=== PATIENT | female | born 1940 | race Caucasian/White ===

== ENCOUNTER → 2016-05-21 | Outpatient (CLI) | payer OTHER ==
[~2016-05-21] MED LIST: CALCTAB5 PO; CHOL100010 PO; CMD4 PO; DIGO0.122 PO; LEVAAER2 INH; METO25TA3 PO; WARF2TAB PO
--- NOTE | 2016-05-21 14:43 | MAMMOGRAPHY REPORT ---
BILATERAL DIGITAL SCREENING MAMMOGRAM WITH CAD: 05/21/2016 CLINICAL HISTORY: Routine screening. Patient has no complaints. TECHNIQUE: Current study was also evaluated with a Computer Aided Detection (CAD) system. Bilatera l CC and MLO views were obtained. COMPARISON: Comparison is made to exams dated: 05/21/2015 mammogram, 05/16/2014 mammogram, 05/11/2013 m ammogram, 05/10/2012 mammogram, 05/08/2011 mammogram, and 10/29/2010 mammogram - [facility]. BREAST COMPOSITION: There are scattered areas of fibroglandular density in both breasts. FINDINGS: No suspicious masses, calcifications, or areas of architectural distortion are noted in e ither breast. There has been no significant interval change compared to prior exams. Bilateral laura gn-appearing calcifications are not significantly changed. IMPRESSION: ACR BI-RADS CATEGORY 2: BENIGN There is no mammographic evidence of malignancy. A 1 year screening mammogram is recommended. The p atient will receive written notification of the results. Approximately 10% of breast cancers are not detected with mammography. A negative mammographic repor t should not delay biopsy if a clinically suggestive mass is present. Ayla Cameron M.D. /:05/21/2016 10:02:00 Willow Analyst: Samira INGRAM(R)(M), [facility] letter sent: Normal 1/2 BI-RADS Code: ACR BI-RADS Category 2: Benign
== END | disposition home or self-care (01) ==
LOC: C.MAMM 09:43
PROVIDERS: ATTEND Obstetrics & Gynecology
DX: Z12.31 Encounter for screening mammogram for malignant neoplasm of breast (principal)

== ENCOUNTER → 2016-05-26 | Outpatient (CLI) | payer OTHER ==
[~2016-05-26] MED LIST changes: -CALCTAB5 PO
== END | disposition home or self-care (01) ==
LOC: C.PAPS 11:00
PROVIDERS: ATTEND Obstetrics & Gynecology
DX: Z12.4 Encounter for screening for malignant neoplasm of cervix (principal); Z78.0 Asymptomatic menopausal state

== ENCOUNTER → 2017-02-25 | Day surgery (SDC) | payer OTHER ==
[2017-01-26 14:13] VITALS: Ht 166.4 cm; Wt 75.0 kg
[~2017-02-25] VITALS: Ht 166.4 cm; Wt 75.0 kg
[~2017-02-25] MED LIST changes: +500ML BSS 0.3ML EPI 1:1000PF IRRIG ONE; +ACETAMINOPHEN 325 MG TAB PO PRN; +AMVISC PLUS 0.8ML SYRINGE INT OCU ONE; +ATROPINE SULFATE 0.1 MG/ML 5ML SYR IV PRN; +AcetaZOLAMIDE 250 MG TAB PO SCH; +BETAXOLOL HCL 0.25% OP SUSP PER DROP CHARGE OPR SCH; +BRIMONIDINE TART 0.2% OP SOLN PER DROP CHARGE ONE; +BSS FLUSH ONE; -CHOL100010 PO; +CHOL20007 PO; -CMD4 PO; -DIGO0.122 PO; +ENDOCOAT 0.85ML SYRINGE INT OCU ONE; +EpHEDrine SULFATE INJ 50 MG/ML AMP IV PRN; +EpINEphrine INJ 1MG/ML AMP 1 MG/ML AMP ONE; +LACTATED RINGER'S 1000ML 500 ML IV SCH; +LEVA45AE INH; -LEVAAER2 INH; +LIDOCAINE 4% OP SOLN DROP CHARGE ONE; +LIDOCAINE 4% OP SOLN DROP CHARGE OPR SCH; +LIDOCAINE HCL 1% MPF 2 ML VIAL ONE; +LNX125 PO; +MIDAZOLAM HCL 1 MG/ML 2ML VIAL ONE; +MIX: 4ML BSS 1ML EPI 1:1000 PF INSTIL ONE; +MOXIFLOXACIN OPH SOLN PER DROP CHARGE ONE; +OCUCOAT 1 ML SOLN IO ONE; +POVIDONE-IODINE OP SOLN 30 ML BTL ONE; +PROPARACAINE 0.5% OP SOLN PER DROP CHARGE OPR SCH; +TOBRAMYCIN/DEXAMETHASONE OPH OINT PER APPLN CHARGE ONE; +WARF4TAB PO
--- NOTE | 2017-02-25 07:20 | History & Physical Bridge - SC ---
H&P Re-Evaluation Bridge Note: I have examined the patient, reviewed the History & Physical and in the interval since the performance of the History & Physical I have noted the following changes of clinical significance: No changes noted
[2017-02-25] MEDS: PHENYLEPHRINE HCL 2.5% OP SOLN PER DROP CHARGE OPR SCH ×2 (08:03→08:08)
[2017-02-25] MEDS: TROPICAMIDE 1% OP SOLN PER DROP CHARGE OPR SCH ×2 (08:04→08:09)
[2017-02-25] MEDS: CYCLOPENTOLATE HCL 1% OP SOLN PER DROP CHARGE OPR SCH ×2 (08:05→08:10)
[2017-02-25] MEDS: MOXIFLOXACIN OPH SOLN PER DROP CHARGE OPR SCH ×2 (08:06→08:18)
--- NOTE | 2017-02-25 08:42 | [facility] Operative Report ---
Operative Report Date of Service Feb 25, 2017. Operative Report 1. PREOPERATIVE DIAGNOSIS: Senile nuclear cataract, right eye. 2. POSTOPERATIVE DIAGNOSIS: Senile nuclear cataract, right eye. 3. PROCEDURE: Phacoemulsification of right cataract with posterior chamber lens implant, type Bausch [employer] Lomb, model MX60, power +22.5 diopters. ANESTHESIA: Local standby. SURGEON: Dr. Carpio. COMPLICATIONS: None. OPERATING TIME: 10 minutes. 4. OPERATION AND FINDINGS: DESCRIPTION OF PROCEDURE: The right pupil was dilated. The anesthetic was administered using a topical technique. The right eye was prepped and draped. A speculum was placed. A clear corneal incision was formed. The chamber was filled with Amvisc Plus and Endocoat. Epinephrine solution was used. A paracentesis was placed. A capsulorrhexis was performed. The nucleus was hydrodissected. A dense lens was removed with phacoemulsification. Time was 8.56 seconds. The aspiration unit was used to remove the cortex. The capsule was filled with Amvisc Plus. The lens implant was folded and placed into the capsule. The incision was hydrated. The Amvisc was aspirated. The wound was secure. The chamber was deep. The pupil was round. Brimonidine, TobraDex ointment and Vigamox solution were placed. The speculum was removed. The patient was returned to the Recovery Room in stable condition. I attest to the content of the Intraoperative Record and any orders documented therein. Any exceptions are noted below. The scribe's documentation has been prepared in my presence, under my direction and personally reviewed by me in its entirety. I confirm that the note above accurately reflects all work, treatment, procedures, and medical decision making performed by me. I personally scribed for Gautam Carpio M.D. (ROHITH) on 02/25/17 at 08:42. Electronically submitted by Sherley Colorado (CLAIR).
--- NOTE | 2017-02-25 08:45 | Discharge Instructions-SurgCtr ---
Discharge Instructions Date of Service Feb 25, 2017. Visit Reason for Visit: Cataract Right Eye Discharge Discharge Diagnosis / Problem: lens implant right eye Discharge Goals Goal(s): Improve function Activity Recommendations Activity Limitations: resume your previous activity Lifting Limitations: no more than 10 pounds Exercise/Sports Limitations: gradually increase as tolerated May Resume Sexual Activity: when tolerated Shower/Bathe: tomorrow Driving or Machine Use: resume 1 day after discharge Anesthesia . Post Anesthesia Instructions: If you have had General Anesthesia or IV Sedation: * Do not drive today. * Resume driving when surgeon permits. * Do not make important decisions or sign legal documents today. * Call surgeon for: 1. Temperature elevations greater than 101 degrees F. 2. Uncontrollable pain. 3. Excessive bleeding. 4. Persistent nausea and vomiting. 5. Medication intolerance (nausea, vomiting or rash). * For nausea and vomiting use only clear liquids such as: tea, soda, bouillon until nausea subsides, then gradually increase diet as tolerated. * If you have any concerns or questions, call your surgeon's office. If physician is unavailable and it is an emergency, call 911 or go to the nearest emergency room. . Instructions / Follow-Up Instructions / Follow-Up ACTIVITY RECOMMENDATIONS: * Light activities. * Mild irritation and blurred vision are common for the first few days. * You may walk outside, read, watch television. * Redness around the white part of the eye is common. MEDICATIONS: Resume previous medications unless instructed otherwise by your surgeon. * Take white Diamox (Acetazolamide) tablet at 1 pm today. Start all eye drops at 1 pm today: * Eye drops (today and tomorrow): Prednisone - one drop in operative eye every 3 hours while awake Ofloxacin - one drop in operative eye every 3 hours while awake Ilevro - one drop in operative eye once daily SPECIAL CARE INSTRUCTIONS: * Tape plastic shield over eye to sleep at night. Call your doctor at with any concerns or problems. FOLLOW UP VISIT: Follow-up with Dr Carpio at [place] office as scheduled. Diet Recommendations Home Diet: no limitations Procedures Procedures Performed: Right Cataract Phacoemulsification With Intraocular Lens Implant Pending Studies Studies pending at discharge: no Medical Emergencies . Who to Call and When: Medical Emergencies: If at any time you feel your situation is an emergency, please call 911 immediately. . Non-Emergent Contact Non-Emergency issues call your: Ensemble Member Call Non-Emergent contact if: your pain is not controlled [phone] . . "Provider Documentation" section prepared by Gautam Carpio. .
--- NOTE | 2017-02-25 09:13 | Anesthesia Progress Nt - [facility] ---
Anesthesia Post Op Note Date & Time Feb 25, 2017 at 09:13 Vital Signs Pain Intensity: 0 Vital Signs Past 12 Hours Date Time Temp Pulse Resp B/P (MAP) Pulse Ox O2 Delivery O2 Flow Rate FiO2 02/25/17 08:47 36.5 84 16 124/85 (98) 97 Room Air 02/25/17 07:46 36.7 92 16 136/80 (98) 96 Room Air Notes Mental Status: alert / awake / arousable, participated in evaluation Pt Amnestic to Procedure: Yes Nausea / Vomiting: adequately controlled Pain: adequately controlled Airway Patency, RR, SpO2: stable & adequate BP & HR: stable & adequate Hydration State: stable & adequate Anesthetic Complications: no major complications apparent
[2017-02-25 09:16] VITALS: BP 111/77; PULSE 80; TEMP 36.6; O2SAT 97
== END | disposition home or self-care (01) ==
LOC: X.SURG 07:26
PROVIDERS: ATTEND Specialist
DX: H25.11 Age-related nuclear cataract, right eye (principal); Z79.01 Long term (current) use of anticoagulants; Z79.899 Other long term (current) drug therapy

== ENCOUNTER → 2017-03-18 | Day surgery (SDC) | payer OTHER ==
[2017-03-16 14:55] VITALS: Ht 166.4 cm; Wt 75.0 kg
[~2017-03-18] VITALS: Ht 166.4 cm; Wt 75.0 kg
[~2017-03-18] MED LIST changes: +BETAXOLOL HCL 0.25% OP SUSP PER DROP CHARGE OPL SCH; -BETAXOLOL HCL 0.25% OP SUSP PER DROP CHARGE OPR SCH; +LIDOCAINE 4% OP SOLN DROP CHARGE OPL SCH; -LIDOCAINE 4% OP SOLN DROP CHARGE OPR SCH; +PROPARACAINE 0.5% OP SOLN PER DROP CHARGE OPL SCH; -PROPARACAINE 0.5% OP SOLN PER DROP CHARGE OPR SCH
[2017-03-18] MEDS: PHENYLEPHRINE HCL 2.5% OP SOLN PER DROP CHARGE OPL SCH ×2 (08:06→08:12)
[2017-03-18] MEDS: TROPICAMIDE 1% OP SOLN PER DROP CHARGE OPL SCH ×2 (08:07→08:13)
[2017-03-18] MEDS: CYCLOPENTOLATE HCL 1% OP SOLN PER DROP CHARGE OPL SCH ×2 (08:10→08:15)
[2017-03-18] MEDS: MOXIFLOXACIN OPH SOLN PER DROP CHARGE OPL SCH ×2 (08:11→08:21)
--- NOTE | 2017-03-18 08:55 | [facility] Operative Report ---
Operative Report Date of Service Mar 18, 2017. Operative Report 1. PREOPERATIVE DIAGNOSIS: Senile nuclear cataract, left eye. 2. POSTOPERATIVE DIAGNOSIS: Senile nuclear cataract, left eye. 3. PROCEDURE: Phacoemulsification of left cataract with posterior chamber lens implant, type Bausch [employer] Lomb, model MX60, power +23.5 diopters. ANESTHESIA: Local standby. SURGEON: Dr. Carpio. COMPLICATIONS: None. OPERATING TIME: 10 minutes. 4. OPERATION AND FINDINGS: DESCRIPTION OF PROCEDURE: The left pupil was dilated. The anesthetic was administered using a topical technique. The left eye was prepped and draped. A speculum was placed. A clear corneal incision was formed. The chamber was filled with Amvisc Plus and Endocoat. Epinephrine solution was used. A paracentesis was placed. A capsulorrhexis was performed. The nucleus was hydrodissected. A dense lens was removed with phacoemulsification. Time was 8.15 seconds. The aspiration unit was used to remove the cortex. The capsule was filled with Amvisc Plus. The lens implant was folded and placed into the capsule. The incision was hydrated. The Amvisc was aspirated. The wound was secure. The chamber was deep. The pupil was round. Brimonidine, TobraDex ointment and Vigamox solution were placed. The speculum was removed. The patient was returned to the Recovery Room in stable condition. I attest to the content of the Intraoperative Record and any orders documented therein. Any exceptions are noted below. The scribe's documentation has been prepared in my presence, under my direction and personally reviewed by me in its entirety. I confirm that the note above accurately reflects all work, treatment, procedures, and medical decision making performed by me. I personally scribed for Gautam Carpio M.D. (ROHITH) on 03/18/17 at 08:55. Electronically submitted by Sherley [place] ([facility]
--- NOTE | 2017-03-18 08:58 | Discharge Instructions-SurgCtr ---
Discharge Instructions Date of Service Mar 18, 2017. Visit Reason for Visit: Cataract Left Eye Discharge Discharge Diagnosis / Problem: lens implant left eye Discharge Goals Goal(s): Improve function Activity Recommendations Activity Limitations: resume your previous activity Lifting Limitations: no more than 10 pounds Exercise/Sports Limitations: gradually increase as tolerated May Resume Sexual Activity: when tolerated Shower/Bathe: tomorrow Driving or Machine Use: resume 1 day after discharge Anesthesia . Post Anesthesia Instructions: If you have had General Anesthesia or IV Sedation: * Do not drive today. * Resume driving when surgeon permits. * Do not make important decisions or sign legal documents today. * Call surgeon for: 1. Temperature elevations greater than 101 degrees F. 2. Uncontrollable pain. 3. Excessive bleeding. 4. Persistent nausea and vomiting. 5. Medication intolerance (nausea, vomiting or rash). * For nausea and vomiting use only clear liquids such as: tea, soda, bouillon until nausea subsides, then gradually increase diet as tolerated. * If you have any concerns or questions, call your surgeon's office. If physician is unavailable and it is an emergency, call 911 or go to the nearest emergency room. . Instructions / Follow-Up Instructions / Follow-Up ACTIVITY RECOMMENDATIONS: * Light activities. * Mild irritation and blurred vision are common for the first few days. * You may walk outside, read, watch television. * Redness around the white part of the eye is common. MEDICATIONS: Resume previous medications unless instructed otherwise by your surgeon. * Take white Diamox (Acetazolamide) tablet at 1 pm today. Start all eye drops at 1 pm today: * Eye drops (today and tomorrow): Prednisone - one drop in operative eye every 3 hours while awake Ofloxacin - one drop in operative eye every 3 hours while awake SPECIAL CARE INSTRUCTIONS: * Tape plastic shield over eye to sleep at night. Call your doctor at with any concerns or problems. FOLLOW UP VISIT: Follow-up with Dr Carpio at [facility] as scheduled. Diet Recommendations Home Diet: no limitations Procedures Procedures Performed: Left Cataract Phacoemulsification With Intraocular Lens Implant Pending Studies Studies pending at discharge: no Medical Emergencies . Who to Call and When: Medical Emergencies: If at any time you feel your situation is an emergency, please call 911 immediately. . Non-Emergent Contact Non-Emergency issues call your: Leadership Program Internship Call Non-Emergent contact if: your pain is not controlled [phone] . . "Provider Documentation" section prepared by Gautam Carpio. .
[2017-03-18 09:02] VITALS: TEMP 36.7
--- NOTE | 2017-03-18 09:06 | Anesthesia Progress Nt - [facility] ---
Anesthesia Post Op Note Date & Time Mar 18, 2017 at 09:06 Vital Signs Pain Intensity: 0 Vital Signs Past 12 Hours Date Time Temp Pulse Resp B/P (MAP) Pulse Ox O2 Delivery O2 Flow Rate FiO2 03/18/17 07:54 36.3 94 16 131/76 (94) 98 Room Air Notes Mental Status: alert / awake / arousable, participated in evaluation Pt Amnestic to Procedure: Yes Nausea / Vomiting: adequately controlled Pain: adequately controlled Airway Patency, RR, SpO2: stable & adequate BP & HR: stable & adequate Hydration State: stable & adequate Anesthetic Complications: no major complications apparent
[2017-03-18 09:27] VITALS: BP 106/68; PULSE 84; O2SAT 100
== END | disposition home or self-care (01) ==
LOC: X.SURG 07:26
PROVIDERS: ATTEND Specialist
DX: H25.12 Age-related nuclear cataract, left eye (principal); I51.9 Heart disease, unspecified; Z79.899 Other long term (current) drug therapy; Z79.01 Long term (current) use of anticoagulants

== ENCOUNTER → 2017-06-25 | Outpatient (CLI) | payer OTHER ==
[~2017-06-25] MED LIST changes: -500ML BSS 0.3ML EPI 1:1000PF IRRIG ONE; -ACETAMINOPHEN 325 MG TAB PO PRN; -AMVISC PLUS 0.8ML SYRINGE INT OCU ONE; -ATROPINE SULFATE 0.1 MG/ML 5ML SYR IV PRN; -AcetaZOLAMIDE 250 MG TAB PO SCH; -BETAXOLOL HCL 0.25% OP SUSP PER DROP CHARGE OPL SCH; -BRIMONIDINE TART 0.2% OP SOLN PER DROP CHARGE ONE; -BSS FLUSH ONE; -ENDOCOAT 0.85ML SYRINGE INT OCU ONE; -EpHEDrine SULFATE INJ 50 MG/ML AMP IV PRN; -EpINEphrine INJ 1MG/ML AMP 1 MG/ML AMP ONE; -LACTATED RINGER'S 1000ML 500 ML IV SCH; -LIDOCAINE 4% OP SOLN DROP CHARGE ONE; -LIDOCAINE 4% OP SOLN DROP CHARGE OPL SCH; -LIDOCAINE HCL 1% MPF 2 ML VIAL ONE; -LNX125 PO; -MIDAZOLAM HCL 1 MG/ML 2ML VIAL ONE; -MIX: 4ML BSS 1ML EPI 1:1000 PF INSTIL ONE; -MOXIFLOXACIN OPH SOLN PER DROP CHARGE ONE; -OCUCOAT 1 ML SOLN IO ONE; -POVIDONE-IODINE OP SOLN 30 ML BTL ONE; -PROPARACAINE 0.5% OP SOLN PER DROP CHARGE OPL SCH; -TOBRAMYCIN/DEXAMETHASONE OPH OINT PER APPLN CHARGE ONE
--- NOTE | 2017-06-26 07:48 | MAMMOGRAPHY REPORT ---
BILATERAL DIGITAL SCREENING MAMMOGRAM TOMOSYNTHESIS WITH CAD: 06/25/2017 CLINICAL HISTORY: Routine screening. TECHNIQUE: Breast tomosynthesis in addition to standard 2D mammography was performed. Current study was also evaluated with a Computer Aided Detection (CAD) system. COMPARISON: Comparison is made to exams dated: 05/21/2016 mammogram, 05/21/2015 mammogram, 05/16/2014 renae mogram, 05/11/2013 mammogram, 05/10/2012 mammogram, and 05/08/2011 mammogram - [facility]. BREAST COMPOSITION: There are scattered areas of fibroglandular density in both breasts. FINDINGS: No suspicious masses, calcifications, or areas of architectural distortion are noted in ei ther breast. There has been no significant interval change compared to prior exams. Bilateral asymme tries and bilateral benign-appearing calcifications are not significantly changed. IMPRESSION: ACR BI-RADS CATEGORY 2: BENIGN There is no mammographic evidence of malignancy. A 1 year screening mammogram is recommended. The pa tient will receive written notification of the results. Approximately 10% of breast cancers are not detected with mammography. A negative mammographic report should not delay biopsy if a clinically suggestive mass is present. Ayla Cameron M.D. /:06/25/2017 14:38:29 Event Planning Intern: Rajesh INGRAM([place])(M), [facility] letter sent: Normal 1/2 BI-RADS Code: ACR BI-RADS Category 2: Benign
== END | disposition home or self-care (01) ==
LOC: C.MAMM 08:36
PROVIDERS: ATTEND Obstetrics & Gynecology
DX: Z12.31 Encounter for screening mammogram for malignant neoplasm of breast (principal)

== ENCOUNTER 2020-06-07 05:49 | Inpatient (IN) ==
--- NOTE | 2020-06-07 06:35 | Emergency Department Note ---
Impression & Plan Closed fracture of left hip, Fall, Atrial fibrillation ED Provider Note NAME: DELMI CHAVEZ AGE: 79 SEX: F : 1940 ARRIVES VIA: Ambulance INFORMANT: Patient, ED PROVIDER(S): Grabiel Betancourt MD Chief Complaint: Fall, hip pain HPI: Patient does present with a fall and associated hip pain. The patient stat es that last evening she was trying to walk past her in the hallway lost her balance and fell striking her left side. The patient denies any head trauma head or neck pain. The patient does take Eliquis for known history of A. fib. Patient denies any fevers chills chest pain shortness of breath nausea or vomiting. The patient did take Tylenol and tried to ice the left hip but without improvement in her symptoms. Ambulation and palpation to make her pain worse and she describes it as achy at baseline and sharp with palpation or additional movement. The patient states that she did has had a prior ankle procedure completed by Dr. Tate with [facility] orthopedics. Patient benny es any LOC. ROS: See HPI for pertinent positives and negatives. A total of 10 systems were reviewed and otherwise negative. Past medical history: See below Surgical history: See below Social history: See below Physical Exam: GENERAL: Wearing a mask. NAD, non-toxic. EYE EXAM: Normal conjunctiva. PERRL, no anisocoria and EOM's grossly intact w/o pain. Head: Normocephalic atraumatic with no pain. NECK: Supple, no nuchal rigidity, no adenopathy, non-tender. No signs of meningismus. No midline C-spine TTP LUNGS: Clear to auscultation. Normal chest wall mechanics. HEART: Irregularly irregular and tachycardic, no MRG. ABDOMEN: Abdomen soft, non-tender, normo-active bowel sounds, no masses, no rebound or guarding. BACK: No CVA TTP. SKIN: No rashes and no bruising. UPPER EXTREMITIES: Upper extremities are grossly normal. TTP. LOWER EXTREMITIES: Grossly normal, no edema. Pain over the left groin and left lateral hip area, decreased range of motion secondary to pain, compartments are soft, neurovascular intact distally. NEURO EXAM: A&O x3, cranial nerves II-XII grossly intact, normal speech, moves all 4 extremities with exception of decreased range of motion left lower extremity secondary to pain. Differential diagnoses: Fracture, subluxation, dislocation, contusion, ligamentous injury, neurovascular, compartment syndrome, rhabdomyolysis, as well as other pathologies. Course: Patient was seen and evaluated the bedside. Full history physical exam was performed. EKG: Indication: Screening No obvious P waves, likely A. fib, ventricular rate of 134, normal QRS, normal axis, PVC noted. Imaging Studies: See below Cardiac monitoring: An order was placed for continuous cardiac monitoring. The monitor shows a rate of 115 with irregularly irregular rhythm. MDM: Patient did present with concern for fall and hip pain. The patient has a white count of 11 but denies infectious symptoms. H&H is normal. The patient's kidney function mild prerenal azotemia with mild elevation in calcium. The patient was ordered a small amount of IV fluids. Patient states that she last took her Eliquis yesterday morning. Patient does have a left subcapital femur fracture. Knee x-ray unremarkable. I did speak with the on-call orthopedist Dr. Kirk who will evaluate the patient. I also did speak with the on-call hospitalist Dr. Matt and the patient was admitted to the medicine service. Patient was ordered her home dose of metoprolol 100 mg. The patient is missed her last 2 doses. Past Med/Surg History Medical History Arthritis HIPS Asthma MILD Exertional shortness of breath Gastroesophageal reflux disease HX OF History of basal cell carcinoma of skin Moderate to severe mitral regurgitation Osteopenia Prediabetes Severe tricuspid regurgitation by prior echocardiogram Varicose veins with pain Surgical History History of ankle surgery MANIPULATION, RIGHT ANKLE History of appendectomy History of cardioversion History of cataract surgery BILAT History of colonoscopy Family History Father Cardiac disorder Stroke Mother Dementia Diabetes Denies family history of Ovarian cancer Prostate cancer Myocardial infarction Breast cancer Colorectal cancer Social History Smoking Status: Never smoker Second Hand Exposure: No; Hx Alcohol Use: Yes Hx Substance Use: No Preferred Language: Chinese Communication Ability: Effective Visual Impairment: No Limitations Hearing Ability: Normal [employer] Worker Required: No Beliefs That Will Affect Care: None marital status: Current Living Situation: Spouse current occupational status: retired How many Children do You have: 3 Feels Safe at Home: Yes Childhood Exposure to Second-Hand Smoke: No caffeine: Yes during the past year weight has: remained stable Dental Care, Regularly: Yes Physical Activity Frequency: 1-2 Times per Week Seatbelt Use: always Sunscreen Use: Yes Assistive Devices: Glasses Allergies Allergies Allergy/AdvReac Type Severity Reaction Status Date / Time adhesive Allergy Mild Rash Verified 06/07/20 07:27 Home Meds Home Medications Medication Instructions Recorded Confirmed cholecalciferol (vitamin D3) 50 2,000 units PO QDD 11/10/17 06/07/20 mcg (2,000 unit) capsule calcium carbonate-vitamin D3 1 tab PO TID 06/07/20 06/07/20 [Calcium 600 + D(3)] metoprolol tartrate 50 mg PO DAILY PRN 06/07/20 06/07/20 Previous Rx's Medication Instructions Recorded albuterol sulfate 90 mcg/actuation See Rx Instructions INH .COMPLEX 08/17/18 aerosol inhaler PRN #6.7 gm apixaban 5 mg tablet 5 mg PO BID #180 tab 12/14/19 metoprolol succinate 100 mg 100 mg PO TID #270 tab 02/28/20 tablet,extended release 24 hr triamterene 37.5 1 tab PO .COMPLEX #30 tab 05/16/20 mg-hydrochlorothiazide 25 mg tablet Results & Data (ED) Vital Signs Vital Signs - 24 hr 06/07/20 06:00 06/07/20 06:36 Temperature 37.2 C Temperature Source Oral Pulse Rate 119 H Respiratory Rate 16 Respiratory Effort / Characteristics Non-Labored Spontaneous Respiratory Depth Normal Respiratory Pattern Regular Blood Pressure 164/110 H Blood Pressure Mean 128 Blood Pressure Position Sitting Pulse Oximetry 92 88 L Oxygen Delivery Method Room Air Room Air Sepsis Recent Fever Within 48 Hours No Sepsis New/Unexplained Change in Mental Status No Sepsis Action Taken by Nursing No Action Required Oxygen Flow Rate - Titration 2 Pulse Oximetry Post Tiitration 93 Home Medications Current Medication List: was personally reviewed by me Laboratory Data Attestation: I reviewed the patient's lab results. Result diagrams: 06/07/20 06:09 04/22/21 06:09 Lab Results 06/07/20 06/07/20 06/07/20 Range/Units 06:09 06:09 06:09 WBC 11.64 H (4.8-10.8) K/uL RBC 4.80 (4.2-5.4) M/uL Hgb 14.3 (12.0-16.0) g/dL Hct 42.6 (37-47) % MCV 88.8 (80-100) fL MCH 29.8 (25-34) pg MCHC 33.6 (32-36) g/dL RDW Std Deviation 45.6 (36.4-46.3) fL RDW Coeff of Harry 13.9 (11.5-14.5) % Plt Count 225 (130-400) K/uL MPV 11.8 H (7.4-10.4) fL Immature Gran % (Auto) 0.2 % Neut % (Auto) 93.0 % Lymph % (Auto) 3.9 % [place] % (Auto) 2.6 % Eos % (Auto) 0.1 % Baso % (Auto) 0.2 % Neut # (Auto) 10.84 H (1.4-6.5) K/uL Lymph # (Auto) 0.45 L (1.2-3.4) K/uL [place] # (Auto) 0.30 (0.11-0.59) K/uL Eos # (Auto) 0.01 (0-0.5) K/uL Baso # (Auto) 0.02 (0-0.2) K/uL Immature Gran # (Auto) 0.02 (0.00-0.02) K/uL PT 11.1 (9.0-12.0) Seconds INR 1.1 (0.9-1.1) APTT 26.1 (21.0-31.0) Seconds PTT Ratio 1.0 Sodium 135 L (136-145) mmol/L Potassium 4.4 (3.5-5.1) mmol/L Chloride 99 (98-107) mmol/L Carbon Dioxide 25 (21-32) mmol/L Anion Gap 11.0 (3-11) BUN 22 H (7-18) mg/dl Creatinine 1.11 (0.6-1.2) mg/dl Est Cr Clr Drug Dosing Not Reportable Est GFR ( Amer) 53.9 Est GFR (Non-Af Amer) 46.5 BUN/Creatinine Ratio 19.9 (10-20) Glucose 155 H (70-99) mg/dl Calcium 10.2 H (8.5-10.1) mg/dl Total Bilirubin 1.5 H (0.2-1) mg/dl AST 26 (15-37) U/L ALT 30 (12-78) U/L Alkaline Phosphatase 92 (45-117) U/L Total Protein 8.4 H (6.4-8.2) gm/dl Albumin 3.8 (3.4-5.0) gm/dl Globulin 4.6 H (2.5-4.0) gm/dl Albumin/Globulin Ratio 0.8 L (0.9-2) COVID-19 Eval Order 06/07/20 Range/Units 07:05 WBC (4.8-10.8) K/uL RBC (4.2-5.4) M/uL Hgb (12.0-16.0) g/dL Hct (37-47) % MCV (80-100) fL MCH (25-34) pg MCHC (32-36) g/dL RDW Std Deviation (36.4-46.3) fL RDW Coeff of Harry (11.5-14.5) % Plt Count (130-400) K/uL MPV (7.4-10.4) fL Immature Gran % (Auto) % Neut % (Auto) % Lymph % (Auto) % [place] % (Auto) % Eos % (Auto) % Baso % (Auto) % Neut # (Auto) (1.4-6.5) K/uL Lymph # (Auto) (1.2-3.4) K/uL [place] # (Auto) (0.11-0.59) K/uL Eos # (Auto) (0-0.5) K/uL Baso # (Auto) (0-0.2) K/uL Immature Gran # (Auto) (0.00-0.02) K/uL PT (9.0-12.0) Seconds INR (0.9-1.1) APTT (21.0-31.0) Seconds PTT Ratio Sodium (136-145) mmol/L Potassium (3.5-5.1) mmol/L Chloride (98-107) mmol/L Carbon Dioxide (21-32) mmol/L Anion Gap (3-11) BUN (7-18) mg/dl Creatinine (0.6-1.2) mg/dl Est Cr Clr Drug Dosing Est GFR ( Amer) Est GFR (Non-Af Amer) BUN/Creatinine Ratio (10-20) Glucose (70-99) mg/dl Calcium (8.5-10.1) mg/dl Total Bilirubin (0.2-1) mg/dl AST (15-37) U/L ALT (12-78) U/L Alkaline Phosphatase (45-117) U/L Total Protein (6.4-8.2) gm/dl Albumin (3.4-5.0) gm/dl Globulin (2.5-4.0) gm/dl Albumin/Globulin Ratio (0.9-2) COVID-19 Eval Order CovFluRsv at [facility] Administered Medications Discontinued Medications Morphine Sulfate (Morphine Sulfate 4 Mg/Ml 1 Ml Carp\Vial) 4 mg IV NOW STA Stop: 06/07/20 06:53 Last Admin: 06/07/20 06:58 Dose: 4 mg Documented by: [id number] Ondansetron HCl (Ondansetron Inj 2 Mg/Ml 2 Ml Vial) 4 mg IV NOW STA Stop: 06/07/20 06:53 Last Admin: 06/07/20 06:58 Dose: 4 mg Documented by: [id number] Imaging Data Radiologist's Impression: Knee X-Ray 06/07/20 06:01 XR knee LT 1 or 2V routine CLINICAL HISTORY: Trauma. COMPARISON: None FINDINGS: Alignment of the left knee is anatomic. No joint effusion. No acute fracture. No osseous lesion is identified. There is moderate medial compartment joint space narrowing. IMPRESSION: 1. No acute fracture or joint effusion of the left knee. 2. Moderate medial compartment osteoarthritis. ACT 112: Negative or not required by law. Electronically signed by: Venu Way M.D. 06/07/2020 6:56 AM Chest X-Ray 06/07/20 06:03 XR chest 1V portable CLINICAL HISTORY: fall. hip pain COMPARISON STUDY: Chest radiograph January 03, 2019. FINDINGS: Lung volumes are normal. There is no pneumothorax or definite pleural effusion. Apparent hazy left basilar opacity is likely artifactual. There is pulmonary vascular congestion. Cardiomegaly is noted. IMPRESSION: Cardiomegaly with pulmonary vascular congestion. ACT 112: Negative or not required by law. Electronically signed by: Venu Way M.D. 06/07/2020 7:02 AM Hip X-Ray 06/07/20 06:03 XR hip LT min 2V CLINICAL HISTORY: fall. pain COMPARISON: CT of the abdomen and pelvis December 05, 2018. FINDINGS: Note is made of an acute displaced subcapital left femoral fracture. Fracture is displaced at least 1.4 cm. No additional acute fractures are noted. Moderate to severe left hip osteoarthritis is present. IMPRESSION: 1. Acute displaced subcapital left femoral neck fracture. 2. Moderate to severe left hip osteoarthritis. ACT 112: Negative or not required by law. Electronically signed by: Venu Way M.D. 06/07/2020 7:00 AM Discharge Plan Visit Data Chief Complaint: Fall Stated Complaint: FALL ED Provider: Grabiel Betancourt Discharge Problem: Closed fracture of left hip, Fall, Atrial fibrillation Forms Stand Alone Forms: [facility] Prescriptions Prescriptions: No Action cholecalciferol (vitamin D3) 2,000 unit capsule 2,000 units PO QDD RF: 0 albuterol sulfate [Proventil HFA] 90 mcg/actuation HFA aerosol inhaler See Rx Instructions INH .COMPLEX PRN (Reason: shortness of breath or wheezing) Qty: 6.7 RF: 1 apixaban 5 mg tablet 5 mg PO BID Qty: 180 RF: 3 metoprolol succinate 100 mg tablet extended release 24 hr 100 mg PO TID Qty: 270 RF: 3 triamterene-hydrochlorothiazid [Maxzide-25mg] 37.5-25 mg tablet 1 tab PO .COMPLEX Qty: 30 RF: 3 metoprolol tartrate 50 mg Tablet 50 mg PO DAILY PRN (Reason: A Fib) RF: 0 calcium carbonate-vitamin D3 [Calcium 600 + D(3)] 600 mg(1,500mg) -400 unit Tablet 1 tab PO TID RF: 0 Discharge Problem: Closed fracture of left hip Qualifiers: Encounter type: initial encounter Qualified Code(s): S72.002A - Fracture of unspecified part of neck of left femur, initial encounter for closed fracture Fall Qualifiers: Encounter type: initial encounter Qualified Code(s): W19.XXXA - Unspecified fall, initial encounter Atrial fibrillation Qualifiers: Atrial fibrillation type: unspecified Qualified Code(s): I48.91 - Unspecified atrial fibrillation
[2020-06-07 06:36] LABS: Basophils # (auto) 0.02 K/uL (0-0.2); Basophils % (auto) 0.2 %; Eosinophils # (auto) 0.01 K/uL (0-0.5); Eosinophils % (auto) 0.1 %; Hematocrit (blood only) 42.6 % (37-47); Hemoglobin 14.3 g/dL (12.0-16.0); Immature Granulocytes # (auto) 0.02 K/uL (0.00-0.02); Immature Granulocytes % (auto) 0.2 %; Lymphocytes # (auto) 0.45 K/uL (1.2-3.4); Lymphocytes % (auto) 3.9 %; Mean Corpuscular Hemoglobin 29.8 pg (25-34); Mean Corpuscular Hgb Conc 33.6 g/dL (32-36); Mean Corpuscular Volume 88.8 fL (80-100); Mean Platelet Volume 11.8 fL (7.4-10.4); Monocytes % (auto) 2.6 %; Neutrophils # (auto) 10.84 K/uL (1.4-6.5); Platelet Count 225 K/uL (130-400); RDW Coefficient of Variation 13.9 % (11.5-14.5); RDW Standard Deviation 45.6 fL (36.4-46.3); White Blood Count 11.64 K/uL (4.8-10.8)
[2020-06-07 06:48] LABS: INR 1.1 (0.9-1.1); Partial Thromboplastin Time 26.1 Seconds (21.0-31.0); Prothrombin Time 11.1 Seconds (9.0-12.0)
[2020-06-07] MEDS ORDERED: ONDANSETRON INJ 2 MG/ML 2 ML VIAL IV STA (06:52)
[2020-06-07] MEDS ORDERED: MoRPHine SULFATE 4 MG/ML 1 ML CARP\\VIAL IV STA (06:52)
--- NOTE | 2020-06-07 06:58 | XRay Report ---
XR knee LT 1 or 2V routine CLINICAL HISTORY: Trauma. COMPARISON: None FINDINGS: Alignment of the left knee is anatomic. No joint effusion. No acute fracture. No osseous l esion is identified. There is moderate medial compartment joint space narrowing. IMPRESSION: 1. No acute fracture or joint effusion of the left knee. 2. Moderate medial compartment osteoarthritis. ACT 112: Negative or not required by law. Electronically signed by: Venu Way M.D. 06/07/2020 6:56 AM
--- NOTE | 2020-06-07 07:01 | XRay Report ---
XR hip LT min 2V CLINICAL HISTORY: fall. pain COMPARISON: CT of the abdomen and pelvis December 05, 2018. FINDINGS: Note is made of an acute displaced subcapital left femoral fracture. Fracture is displaced at least 1.4 cm. No additional acute fractures are noted. Moderate to severe left hip osteoarthritis is present. IMPRESSION: 1. Acute displaced subcapital left femoral neck fracture. 2. Moderate to severe left hip osteoarthritis. ACT 112: Negative or not required by law. Electronically signed by: Venu Way M.D. 06/07/2020 7:00 AM
--- NOTE | 2020-06-07 07:04 | XRay Report ---
XR chest 1V portable CLINICAL HISTORY: fall. hip pain COMPARISON STUDY: Chest radiograph January 03, 2019. FINDINGS: Lung volumes are normal. There is no pneumothorax or definite pleural effusion. Apparent amin zy left basilar opacity is likely artifactual. There is pulmonary vascular congestion. Cardiomegaly i s noted. IMPRESSION: Cardiomegaly with pulmonary vascular congestion. ACT 112: Negative or not required by law. Electronically signed by: Venu Way M.D. 06/07/2020 7:02 AM
[2020-06-07 07:05] LABS: Alanine Aminotransferase 30 U/L (12-78); Albumin Level 3.8 gm/dl (3.4-5.0); BUN Creatinine Ratio 19.9 (10-20); Blood Urea Nitrogen 22 mg/dl (7-18); Calcium 10.2 mg/dl (8.5-10.1); Carbon Dioxide 25 mmol/L (21-32); Chloride 99 mmol/L (98-107); Est GFR (African American) 53.9; Est GFR (Non-African American) 46.5; Glucose 155 mg/dl (70-99)
[2020-06-07 07:07] LABS: Albumin Globulin Ratio 0.8 (0.9-2); Alkaline Phosphatase 92 U/L (45-117); Bilirubin,Total 1.5 mg/dl (0.2-1); Globulin 4.6 gm/dl (2.5-4.0); Total Protein 8.4 gm/dl (6.4-8.2)
[2020-06-07 07:13] LABS: Potassium 4.4 mmol/L (3.5-5.1); Sodium 135 mmol/L (136-145)
[2020-06-07 07:15] LABS: Aspartate Aminotransferase 26 U/L (15-37)
--- NOTE | 2020-06-07 07:27 | History & Physical Report ---
Date of Service June 07, 2020 Assessment & Plan (1) Subcapital fracture of left hip: Patient is medically appropriate for surgery. She does have cardiovascular risk with pulmonary hypertension and mitral regurgitation. She last took her oral anticoagulants on 06/07/2019 1 in the AM. Would recommend holding for 24 hours subsequent best lowest risk for surgical bleeding would be if surgery was performed on 06/08/2020 (2) Permanent atrial fibrillation: Patient typically takes metoprolol 100 mg succinate 3 times daily with the supervision of Dr. Olivares. 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 (3) Acquired autoimmune hypothyroidism: Patient is currently not any thyroid supplementation we will check a TSH (4) Moderate pulmonary arterial systolic hypertension: History of Present Illness Primary Care Provider: Ori Chavarria, Pt reportedly fell last pm trying to get around her , she tired to rest but had increasing pain in the hip, states she did not take her eliquis last pm, presents to ER with left subcapital hip fracture Allergies Allergy/AdvReac Type Severity Reaction Status Date / Time adhesive Allergy Mild Rash Verified 06/07/20 07:27 Home Medications Medication Instructions Recorded Confirmed Type cholecalciferol (vitamin D3) 50 2,000 units PO QDD 11/10/17 06/07/20 History mcg (2,000 unit) capsule albuterol sulfate 90 mcg/actuation See Rx Instructions INH .COMPLEX 08/17/18 06/07/20 Rx aerosol inhaler PRN #6.7 gm apixaban 5 mg tablet 5 mg PO BID #180 tab 12/14/19 06/07/20 Rx metoprolol succinate 100 mg 100 mg PO TID #270 tab 02/28/20 06/07/20 Rx tablet,extended release 24 hr triamterene 37.5 1 tab PO .COMPLEX #30 tab 05/16/20 06/07/20 Rx mg-hydrochlorothiazide 25 mg tablet calcium carbonate-vitamin D3 1 tab PO TID 06/07/20 06/07/20 History [Calcium 600 + D(3)] metoprolol tartrate 50 mg PO DAILY PRN 06/07/20 06/07/20 History Past Med/Surg History Medical History (Updated 06/07/20 @ 15:53 by Davian Marcelino MD) Arthritis HIPS Asthma MILD Exertional shortness of breath Gastroesophageal reflux disease HX OF History of basal cell carcinoma of skin Moderate to severe mitral regurgitation Osteopenia Permanent atrial fibrillation DX 25 YRS AGO, HX CARDIOVERSION BUT AFIB RETURNED. Prediabetes Severe tricuspid regurgitation by prior echocardiogram Tachycardia Varicose veins with pain Surgical History History of ankle surgery MANIPULATION, RIGHT ANKLE History of appendectomy History of cardioversion History of cataract surgery BILAT History of colonoscopy Family History Father Cardiac disorder Stroke Mother Dementia Diabetes Denies family history of Ovarian cancer Prostate cancer Myocardial infarction Breast cancer Colorectal cancer Social History Smoking Status: Never smoker Second Hand Exposure: No; Hx Alcohol Use: Yes Alcohol type: wine Hx Substance Use: No Preferred Language: Hebrew Communication Ability: Effective Visual Impairment: No Limitations Hearing Ability: Normal Maintenance Representative Required: No Beliefs That Will Affect Care: None marital status: Current Living Situation: Spouse current occupational status: retired How many Children do You have: 3 Other Information That Helps Us Care for You: No Feels Safe at Home: Yes Safety Concerns: Feels Safe At This Time Childhood Exposure to Second-Hand Smoke: No caffeine: Yes during the past year weight has: remained stable Dental Care, Regularly: Yes Physical Activity Frequency: 1-2 Times per Week Seatbelt Use: always Sunscreen Use: Yes Assistive Devices: Glasses Review of Systems Review of Systems: Mild distress and fatigue no headache, blurry or double vision no speech or swallowing issues no chest pain, pressure or palpitations no shortness of breath, cough or wheezes no abdominal pain, nausea or vomiting, diarrhea or constipation no dysuria, hematuria or frequency focal left hip pain and some swelling to thigh no back pain, CVA tenderness or radicular pain no bruising, bleeding or rashes no focal signs of weakness or numbness or altered sensation no complaints of anxiety or depression.. Physical Exam Physical Exam: The patient appeared well nourished and normally developed. Vital signs as documented. Head exam is normocephalic atraumatic no scleral icterus Neck is without JVD, thyromegaly, or carotid bruits. Lungs are clear to auscultation, no focal loss of breath sounds Cardiac exam, tachycardic and irregular [place] is heard Abdominal exam reveals normal bowel sounds, soft non tender, no masses Extremities left sided hip pain and some swelling Neurologic exam is alert and oriented, no focal loss of strength or sensation Skin is without bruises or rashes Psychologically is without concerns for anxiety or depression Results & Data Results & Data ([facility]) Vital Signs (Past 12 Hours) Vital Signs Temp Pulse Resp BP Pulse Ox 06/07/20 06:36 88 L 06/07/20 06:00 99.0 F 119 H 16 164/110 H 92 Code Status & VTE Plan VTE Prophylaxis Plan VTE Prophylaxis will be ordered: Yes PG Care Time/CCT Total # of Minutes Spent Total Time Spent with Patient: Total time spent is greater than 50% in coordination of care (as documented) at patient's floor/unit and/or counseling patient: Coding Level of Care Code 60977 Initial Inpt Care Lvl 3 Diagnoses Subcapital fracture of left hip S72.012A Permanent atrial fibrillation I48.2 Acquired autoimmune hypothyroidism E06.3 Moderate pulmonary arterial systolic hypertension I27.21
[2020-06-07] MEDS ORDERED: SODIUM CHLORIDE 0.9% 1000ML 500 ML IV ONE (07:46)
[2020-06-07] MEDS ORDERED: METOPROLOL SUCC 50MG EXT REL TAB PO STA (07:49)
[2020-06-07 07:58] LABS: Influenza A virus by PCR Negative (Neg); Influenza B virus by PCR Negative (Neg); RSV by PCR Negative (Neg); SARS CoV2 RNA(COVID-19) InHosp NEGATIVE (Negative)
[2020-06-07] MEDS ORDERED: MoRPHine SULFATE 2 MG/ML CARP IV PRN (10:20)
[2020-06-07] MEDS ORDERED: ONDANSETRON INJ 2 MG/ML 2 ML VIAL IV PRN (10:20)
[2020-06-07] MEDS ORDERED: ACETAMINOPHEN 500 MG TAB PO PRN (10:20)
[2020-06-07] MEDS ORDERED: oxyCODONE HCL IR 5 MG TAB (IMMEDIATE RELEASE) PO PRN (10:20)
[2020-06-07] MEDS ORDERED: POLYETHYLENE (MIRALAX) 17 GM PACK PO PRN (10:20)
[2020-06-07] MEDS ORDERED: MoRPHine SULFATE 4 MG/ML 1 ML CARP\\VIAL IV PRN (10:20)
[2020-06-07] MEDS ORDERED: METOPROLOL SUCC 50MG EXT REL TAB PO ONE (11:00)
--- NOTE | 2020-06-07 12:20 | Electrocardiogram Report ---
Test Reason : Blood Pressure : / mmHG Vent. Rate : 134 BPM Atrial Rate : 053 BPM P-R Int : 000 ms QRS Dur : 068 ms QT Int : 324 ms P-R-T Axes : 000 071 017 degrees QTc Int : 483 ms Atrial fibrillation Nonspecific ST abnormality Abnormal ECG When compared with ECG of 03-JAN-2019 12:13, ST now depressed in Anterolateral leads Confirmed by Efrain Mei ([id number]) on 06/07/2020 12:20:21 PM Referred By: REFERRED SELF Confirmed By:Prasanna Mei
--- NOTE | 2020-06-07 15:16 | Orthopedic Consultation ---
Date of Service June 07, 2020 Assessment & Plan (1) Closed fracture of left hip: I discussed the diagnosis and treatment options with her at bedside. I did recommend left hip hemiarthroplasty versus total hip arthroplasty. She understands the risk, benefits, and alternatives to procedures like to proceed. Questions were answered at bedside today and consents were signed. Time was spent scribed the procedure and postop expectations. The decision was made for surgery. We will make her n.p.o. past midnight tonight. I plan to do the surgery tomorrow afternoon. History of Present Illness Reason for Consultation: Left femoral neck fracture. Requesting Physician: . Attending Physician: Raman Matt MD Radha is a pleasant 79-year-old female who lives in a house with her . She is a community ambulator without assistance. She was walking down the hallway last evening when she went to past her and tripped and fell. She injured her left hip. She came to the emergency room and radiographs demonstrated a displaced left femoral neck fracture. She was admitted to the hospitalist service. She is on Eliquis so any operative consideration will take place until tomorrow. Allergies Allergy/AdvReac Type Severity Reaction Status Date / Time adhesive Allergy Mild Rash Verified 06/07/20 07:27 Home Medications Medication Instructions Recorded Confirmed Type cholecalciferol (vitamin D3) 50 2,000 units PO QDD 11/10/17 06/07/20 History mcg (2,000 unit) capsule albuterol sulfate 90 mcg/actuation See Rx Instructions INH .COMPLEX 08/17/18 06/07/20 Rx aerosol inhaler PRN #6.7 gm apixaban 5 mg tablet 5 mg PO BID #180 tab 12/14/19 06/07/20 Rx metoprolol succinate 100 mg 100 mg PO TID #270 tab 02/28/20 06/07/20 Rx tablet,extended release 24 hr triamterene 37.5 1 tab PO .COMPLEX #30 tab 05/16/20 06/07/20 Rx mg-hydrochlorothiazide 25 mg tablet calcium carbonate-vitamin D3 1 tab PO TID 06/07/20 06/07/20 History [Calcium 600 + D(3)] metoprolol tartrate 50 mg PO DAILY PRN 06/07/20 06/07/20 History Past Med/Surg History Medical History Arthritis HIPS Asthma MILD Exertional shortness of breath Gastroesophageal reflux disease HX OF History of basal cell carcinoma of skin Moderate to severe mitral regurgitation Osteopenia Prediabetes Severe tricuspid regurgitation by prior echocardiogram Varicose veins with pain Surgical History History of ankle surgery MANIPULATION, RIGHT ANKLE History of appendectomy History of cardioversion History of cataract surgery BILAT History of colonoscopy Family History Father Cardiac disorder Stroke Mother Dementia Diabetes Denies family history of Ovarian cancer Prostate cancer Myocardial infarction Breast cancer Colorectal cancer Social History Smoking Status: Never smoker Second Hand Exposure: No; Hx Alcohol Use: Yes Alcohol type: wine Hx Substance Use: No Preferred Language: Faroese Communication Ability: Effective Visual Impairment: No Limitations 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 Salt Required: No Beliefs That Will Affect Care: None marital status: Current Living Situation: Spouse current occupational status: retired How many Children do You have: 3 Other Information That Helps Us Care for You: No Feels Safe at Home: Yes Safety Concerns: Feels Safe At This Time Childhood Exposure to Second-Hand Smoke: No caffeine: Yes during the past year weight has: remained stable Dental Care, Regularly: Yes Physical Activity Frequency: 1-2 Times per Week Seatbelt Use: always Sunscreen Use: Yes Assistive Devices: Glasses Review of Systems All systems reviewed & are unremarkable except as noted in HPI & below. Physical Exam Physical examination left hip, the femur is shortened and externally rotated. She has active dorsiflexion plantarflexion of the left ankle. There are no abrasions, lesions, or lacerations of the hip.. Constitutional WD/WN, vitals as above Eyes PERRL, conjunctivae normal, anicteric sclerae ENMT external ear and nose normal, oropharynx normal Neck trachea midline, no thyromegaly Respiratory normal respiratory effort Cardiovascular RRR, no murmur, no edema Gastrointestinal (Abdomen) normal bowel sounds, soft, nontender, no hepatosplenomegaly Psychiatric A+Ox3, euthymic affect Results & Data Results & Data Laboratory Results . Diagnostic Findings X-rays of the left hip and pelvis do show a displaced left femoral neck fracture.. PG Care Time/CCT Total # of Minutes Spent Total Time Spent with Patient: Total time spent is greater than 50% in coordination of care (as documented) at patient's floor/unit and/or counseling patient: Coding Level of Care Code 39963 Inpt Consult Level 4 (57 - DECISION FOR SURGERY) Diagnoses Closed fracture of left hip S72.002A Encounter type: initial encounter (1) Closed fracture of left hip Encounter type: initial encounter Qualified Code(s): S72.002A - Fracture of unspecified part of neck of left femur, initial encounter for closed fracture
--- NOTE | 2020-06-07 15:55 | Anesthesiology Consultation ---
Date of Service June 07, 2020 Assessment & Plan (1) Encounter for pre-operative examination: Chart Review Chart Review: Acceptable Risk for Surgery and Patient NOT seen in Pre Admission Testing Hospitalist note 06/07/20: Patient is medically appropriate for surgery. She does have cardiovascular risk with pulmonary hypertension and mitral regurgitation. She last took her oral anticoagulants on 06/07/2019 1 in the AM. Would recommend holding for 24 hours subsequent best lowest risk for surgical bleeding would be if surgery was performed on 06/08/2020 (2) Permanent atrial fibrillation: Patient typically takes metoprolol 100 mg succinate 3 times daily with the supervision of Dr. Olivares. 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 Covid neg 06/07/20 Consults Requested none History Surgery Operation Date: 06/08/20 14:30 Proposed Procedures p Left Shukri-Arthroplasty Anterior Approach(Left) - Omid Kirk, Height/Weight Height: 5 ft 5.5 in Weight: 81.3 kg Allergies Allergy/AdvReac Type Severity Reaction Status Date / Time adhesive Allergy Mild Rash Verified 06/07/20 07:27 Medications Home Medications Medication Instructions Recorded Confirmed Last Taken cholecalciferol (vitamin D3) 50 2,000 units PO QDD 11/10/17 06/07/20 06/05/20 mcg (2,000 unit) capsule albuterol sulfate 90 mcg/actuation See Rx Instructions INH .COMPLEX 08/17/18 06/07/20 Unknown aerosol inhaler PRN #6.7 gm apixaban 5 mg tablet 5 mg PO BID #180 tab 12/14/19 06/07/20 06/06/20 09:30 metoprolol succinate 100 mg 100 mg PO TID #270 tab 02/28/20 06/07/20 06/06/20 12:00 tablet,extended release 24 hr triamterene 37.5 1 tab PO .COMPLEX #30 tab 05/16/20 06/07/20 Unknown mg-hydrochlorothiazide 25 mg tablet calcium carbonate-vitamin D3 1 tab PO TID 06/07/20 06/07/20 06/06/20 09:30 [Calcium 600 + D(3)] metoprolol tartrate 50 mg PO DAILY PRN 06/07/20 06/07/20 06/06/20 02:00 50 mg Past Medical History Medical History (Updated 06/07/20 @ 15:53 by Davian Marcelino MD) Arthritis HIPS Asthma MILD Exertional shortness of breath Gastroesophageal reflux disease HX OF History of basal cell carcinoma of skin Moderate to severe mitral regurgitation Osteopenia Permanent atrial fibrillation DX 25 YRS AGO, HX CARDIOVERSION BUT AFIB RETURNED. Prediabetes Severe tricuspid regurgitation by prior echocardiogram Tachycardia Varicose veins with pain Past Family History Family History Father Cardiac disorder Stroke Mother Dementia Diabetes Denies family history of Ovarian cancer Prostate cancer Myocardial infarction Breast cancer Colorectal cancer Past Surgical History Surgical History History of ankle surgery MANIPULATION, RIGHT ANKLE History of appendectomy History of cardioversion History of cataract surgery BILAT History of colonoscopy Social History Smoking Status: Never smoker Hx Alcohol Use: Yes Alcohol type: wine alcohol intake frequency: holidays/special occasions only Hx Substance Use: No substance use type: does not use Physical Exam Vital Signs Last Vital Signs Temp 36.8 C 06/07/20 12:10 Pulse 83 06/07/20 12:10 Resp 16 06/07/20 12:10 BP 125/75 06/07/20 12:10 Pulse Ox 98 06/07/20 12:10 Testing Laboratory Results 06/07/20 06:09 06/07/20 06:09 PT 11.1 Seconds (9.0-12.0) 06/07/20 06:09 INR 1.1 (0.9-1.1) 06/07/20 06:09 APTT 26.1 Seconds (21.0-31.0) 06/07/20 06:09 Electrocardiogram Date: 06/07/20 DICTATED BY: Efrain Mei MD Test Reason : Blood Pressure : / mmHG Vent. Rate : 134 BPM Atrial Rate : 053 BPM P-R Int : 000 ms QRS Dur : 068 ms QT Int : 324 ms P-R-T Axes : 000 071 017 degrees QTc Int : 483 ms Atrial fibrillation Nonspecific ST abnormality Abnormal ECG When compared with ECG of 03-JAN-2019 12:13, ST now depressed in Anterolateral leads Confirmed by Efrain Mei ([id number]) on 06/07/2020 12:20:21 PM Echocardiogram Date: 12/14/19 EF: 45-50% LV is normal in size. LV systolic function is mildly reduced. EF 45-50% Mild global hypokinesis of the LV Moderate to severe mitral regurgitation LA severely dilated Severe tricuspid regurgitation RA severely dilated RV systolic pressure is elevated at 40-50mmHg.
[2020-06-07 16:24] LABS: Appearance Urine Clear (Clear); Bacteria Urine Automated Negative (Negative); Bilirubin Urine Negative (Negative); Blood Urine 2+ (Negative); Color Urine Dark Yellow; Epithelial Cell Urine Auto >30 /lpf (0-5); Glucose Urine UA Negative (Negative); Ketones Urine Trace (Negative); Leukocyte Esterase Urine Negative (Negative); Nitrite Urine Negative (Negative); Protein Urine 1+ (Negative); RBC Urine Automated 0-4 /hpf (0-4); Specific Gravity Urine 1.028 (1.000-1.030); Urobilinogen Urine Negative (Negative)
[2020-06-07] MEDS ORDERED: METOPROLOL TARTRATE 1 MG/ML VIAL IV PRN (17:21)
[2020-06-07] MEDS ORDERED: MAGNESIUM SULFATE / D5W 1 GM/100 ML BAG IV ONE (18:30)
[2020-06-07] MEDS: SODIUM CHLORIDE 0.9% 1000ML 1,000 ML IV SCH (19:24)
[2020-06-07] MEDS: METOPROLOL SUCC 50MG EXT REL TAB PO SCH (20:24)
[2020-06-08 07:11] LABS: Hematocrit (blood only) 40.1 % (37-47); Hemoglobin 13.2 g/dL (12.0-16.0); Mean Corpuscular Hemoglobin 29.6 pg (25-34); Mean Corpuscular Hgb Conc 32.9 g/dL (32-36); Mean Corpuscular Volume 89.9 fL (80-100); Mean Platelet Volume 12.1 fL (7.4-10.4); Platelet Count 181 K/uL (130-400); RDW Coefficient of Variation 14.2 % (11.5-14.5); RDW Standard Deviation 46.9 fL (36.4-46.3); Red Blood Count 4.46 M/uL (4.2-5.4); White Blood Count 10.92 K/uL (4.8-10.8)
[2020-06-08] MEDS ORDERED: BUPIVACAINE 0.5 % 5 MG/1 ML PF 10ML VIAL ONE (07:16)
[2020-06-08 07:44] LABS: Calcium 8.5 mg/dl (8.5-10.1); Creatinine Clr Calc Pharmacy 55.5 ml/min; Est GFR (African American) 75.5; Est GFR (Non-African American) 65.2; Magnesium 2.2 mg/dl (1.8-2.4); Potassium 4.5 mmol/L (3.5-5.1)
[2020-06-08] MEDS: SODIUM CHLORIDE 0.9% 1000ML 1,000 ML IV SCH (08:03)
[2020-06-08] MEDS: METOPROLOL SUCC 50MG EXT REL TAB PO SCH ×3 (08:04→21:22)
[2020-06-08] MEDS ORDERED: CHOLECALCIFEROL 1,000 UNITS 25 MCG TAB PO SCH (09:00)
[2020-06-08] MEDS ORDERED: STAT IV Infusion **Titration per Protocol STA ×2 (10:42→17:36)
[2020-06-08] MEDS ORDERED: dilTIAZem HCl 5 MG/ML 5 ML VIAL IV STA (10:48)
[2020-06-08] MEDS ORDERED: dilTIAZem HCL 125 MG in DEXTROSE 5% 100 ML IV SCH (11:00)
--- NOTE | 2020-06-08 11:13 | History & Physical Bridge Note ---
Date of Service June 08, 2020 History & Physical Bridge Note I have examined the patient, reviewed the History & Physical and in the interval since the performance of the History & Physical I have noted the following changes of clinical significance: no changes noted
[2020-06-08] MEDS ORDERED: ROCURONIUM BROMIDE 10 MG/ML 5 ML VIAL IV ONE (12:11)
[2020-06-08] MEDS ORDERED: NEOSTIGMINE METHYLSULFATE 5 MG/5 ML SYR ONE (12:11)
[2020-06-08] MEDS ORDERED: ONDANSETRON INJ 2 MG/ML 2 ML VIAL ONE (12:11)
[2020-06-08] MEDS ORDERED: GLYCOPYRROLATE 0.2 MG/ML VIAL ONE (12:11)
[2020-06-08] MEDS ORDERED: fentaNYL citrate 100 MCG/2 ML VIAL ONE ×2 (12:11→13:56)
[2020-06-08] MEDS ORDERED: PROPOFOL IV EMULSION 10 MG/ML 20 ML VIAL IV ONE (12:11)
[2020-06-08] MEDS ORDERED: PHENYLEPHRINE 100MCG/ML 5ML SYR ONE (12:11)
[2020-06-08] MEDS ORDERED: LIDOCAINE HCL 2% 2 ML VIAL/AMP(20MG/ML) INFIL ONE (12:11)
[2020-06-08] MEDS ORDERED: ceFAZolin 2000MG 2,000 MG/15 ML SYR IV ONE (12:53)
[2020-06-08] MEDS ORDERED: DEXAMETHASONE SOD INJ 4 MG/ML VIAL ONE (14:52)
[2020-06-08] MEDS ORDERED: BUPIVACAINE/EPINEPHRINE 0.5% MPF 1:200,000 30 ML VIAL ONE (14:59)
--- NOTE | 2020-06-08 15:03 | Operative Report ---
PG Post Operative Report Pre & Post Diagnosis Operation Date: 06/08/20 14:30 Pre-Op Diagnosis: Displaced left femoral neck fracture with osteoarthritis Post-Op Diagnosis: Displaced left femoral neck fracture with osteoarthritis I identified the patient and participated in the time-out.: Yes Procedure Operation Date: 06/08/20 14:30 Actual Procedures p Left Total Hip Arthroplasty cemented (Left) - Omid Kirk DO Surgeon Omid Kirk DO Medical Insurance Coding Specialist Omid Fuller PAC Estimated Blood Loss 250 Findings Consistent with Post-Op Diagnosis Specimens Left femoral head Complications none Disposition Disposition: Recovery Room Indications Radha is a pleasant 79-year-old female who fell 2 days ago sustaining a displaced left femoral neck fracture. She states she has been having pain in her hip for years and knows she may need a hip replacement in the future. After discussions at bedside, she elected proceed with a left total hip arthroplasty. Description of Procedure Implants used I used a Ivet Biomet total hip arthroplasty system with a size 12 cemented LDFX stem, a 52 mm G7 cup with a 25mm screw, an E1 polyethylene liner, a 36 mm ceramic head with a +3.5 neck. Radha was brought down from her hospital bed to the preoperative holding area. She was seen in the preoperative holding area and the operative extremity was identified and signed. She was given a spinal anesthetic, a preoperative antibiotic, and TXA. She was then taken back to the operating room and laid on the table in the supine position. She was given general anesthesia. The operative leg was secured to a Puristst leg positioner. The hip was then prepped and draped in sterile fashion. A timeout was done and the patient and the operative extremity was properly identified. An anterior approach was used. Dissection was taken down through the fascia and the tensor muscle belly was retracted laterally and the rectus was retracted medially. The circumflex vessels were identified and ligated. The capsule was then incised and tagged for later repair. The femoral neck was then cut and the femoral head was removed. The acetabulum was exposed. Time was spent doing a complete circumferential labral release. Sequential reaming of the acetabulum up to a size 51 reamer was done. Final reamings were done under fluoroscopy to ensure appropriate version. A Biomet 52 mm G7 cup was then impacted into place. A single 25 mm screw was placed. The E1 polyethylene liner was then snapped into place. Surrounding soft tissues were then injected with 100 cc of an orthopedic pain control cocktail. The proximal femur was then exposed. Sequential broaching up to a size 12 broach was done. Off that broach a size 36 head with a +3.5 neck was trialed. The hip was reduced and fluoroscopic images showed anatomic alignment of the implants in acceptable length. The broach was removed. The final size 12 LDFX stem was then cemented into place. A ceramic 36 mm head with a +3.5 neck was then impacted onto the stem and the hip was reduced. Final fluoroscopic images showed anatomic alignment of the hip. The capsule was then closed with #1 Vicryl suture. A dilute betadyne lavage was then done for 3 minutes. The joint was then irrigated with normal saline solution. The fascia was closed with #1 PDS suture. Skin was closed with 2-0 Vicryl, kenny, and a Silverlon dressing. She was then transferred to a hospital bed and taken to the post anesthesia care unit in stable condition. She tolerated the procedure well. Omid Fuller PA-C, was present for the entire procedure. He was critical for patient positioning, prepping, draping, retraction exposure, wound closure and application of sterile dressing. I attest to the content of the Intraoperative Record and any orders documented therein. Any exceptions are noted below.
[2020-06-08] MEDS ORDERED: ePHEDrine sulfate 50 MG/ML AMP IV PRN (15:18)
[2020-06-08] MEDS ORDERED: ATROPINE SULFATE 0.1 MG/ML 10ML SYR IV PRN (15:18)
[2020-06-08] MEDS ORDERED: fentaNYL citrate 100 MCG/2 ML VIAL IV PRN (15:18)
[2020-06-08] MEDS ORDERED: ONDANSETRON INJ 2 MG/ML 2 ML VIAL IV PRN ×2 (15:18→17:29)
--- NOTE | 2020-06-08 15:27 | Fluoroscopy Report ---
FL hip LT 1V CLINICAL HISTORY: Anterior left arthroplasty. COMPARISON STUDY: Left hip radiographs June 07, 2020 FLUOROSCOPY TIME: 20 seconds. FLUOROSCOPIC IMAGES: 1 FINDINGS: Fluoroscopy was provided during total left hip arthroplasty. Hardware is intact. No peripro sthetic fracture is noted. There is an acetabular screw. IMPRESSION: Fluoroscopy provided during total left hip arthroplasty. ACT 112: Negative or not required by law. Electronically signed by: Venu Way M.D. 06/08/2020 3:26 PM
--- NOTE | 2020-06-08 16:01 | XRay Report ---
AP PELVIS, CROSSTABLE LATERAL LEFT HIP History: Left total hip arthroplasty. Degenerative arthritis. Postop. FINDINGS: The patient is status post a left total hip arthroplasty. The hardware is intact. No fractu re or dislocation. Skin kenny are in place. Severe osteoarthritis within the right hip. IMPRESSION: Left total hip arthroplasty. No evidence for hardware complication. ACT 112: Negative or not required by law. Electronically signed by: Jonatan Kitchen M.D. 06/08/2020 3:59 PM
--- NOTE | 2020-06-08 16:10 | Anesthesiology Progress Note ---
Date of Service June 08, 2020 Anesthesia Post Procedure Vital Signs Vital Signs: Temp Pulse Pulse Pulse Pulse Resp BP 06/08/20 16:00 128 H 20 06/08/20 15:50 126 H 18 06/08/20 15:40 118 H 18 06/08/20 15:32 37.2 C 122 H 14 06/08/20 12:45 36.8 C 105 H 20 06/08/20 11:20 94 H 06/08/20 11:04 128 H 06/08/20 08:03 133 H 130/79 06/08/20 07:52 37.3 C 88 19 06/08/20 03:45 36.9 C 74 20 06/07/20 22:53 37.1 C 98 H 16 06/07/20 19:34 36.7 C 102 H 18 06/07/20 16:42 36.9 C 76 18 BP BP Pulse Ox 06/08/20 16:00 121/67 93 06/08/20 15:50 128/72 95 06/08/20 15:40 119/77 94 06/08/20 15:32 134/91 92 06/08/20 12:45 129/95 96 06/08/20 11:20 117/76 06/08/20 11:04 127/77 06/08/20 08:03 06/08/20 07:52 130/79 95 06/08/20 03:45 124/81 92 06/07/20 22:53 135/78 97 06/07/20 19:34 115/77 94 06/07/20 16:42 129/72 98 Pain Intensity Left Groin: Pain Intensity: 0 Transfer of Care Handoff Completed per policy Notes Mental Status: alert / awake / arousable Patient Amnestic to Procedure: Yes Nausea / Vomiting: adequately controlled Pain: adequately controlled Airway Patency, RR, SpO2: stable & adequate BP & HR: stable & adequate Hydration State: stable & adequate Anesthetic Complications: no major complications apparent
[2020-06-08] MEDS ORDERED: MAGNESIUM HYDROXIDE SUSP 30 ML UDC PO PRN (17:29)
[2020-06-08] MEDS ORDERED: oxyCODONE HCL IR 5 MG TAB (IMMEDIATE RELEASE) PO PRN (17:29)
[2020-06-08] MEDS ORDERED: METOCLOPRAMIDE HCL INJ 5 MG/ML 2 ML VIAL IV PRN (17:29)
[2020-06-08] MEDS ORDERED: NALOXONE HCL 0.4 MG/1 ML VIAL/CARP IV PRN (17:29)
[2020-06-08] MEDS ORDERED: bisacodyL 10 MG SUPP PR PRN (17:29)
[2020-06-08] MEDS ORDERED: SODIUM CHLORIDE 0.9% 1000ML 1,000 ML IV SCH (17:29)
[2020-06-08] MEDS ORDERED: METOPROLOL TARTRATE 50 MG TAB PO PRN (17:29)
[2020-06-08] MEDS ORDERED: ALBUTEROL HFA 8 GM INHALER INH PRN (17:29)
[2020-06-08] MEDS ORDERED: HYDROmorphone INJ 0.5 MG/0.5 ML SYR IV PRN (17:29)
[2020-06-08] MEDS: dilTIAZem HCL 125 MG in DEXTROSE 5% 100 ML IV SCH (18:42)
--- NOTE | 2020-06-08 18:52 | Hospitalist Progress Note ---
Date of Service June 08, 2020 Assessment & Plan (1) Subcapital fracture of left hip: surgery was performed on 06/08/2020 Left Total Hip Arthroplasty Anterior Approach (2) Permanent atrial fibrillation: Patient typically takes metoprolol 100 mg succinate 3 times daily with the supervision of Dr. Olivares. 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 (3) Acquired autoimmune hypothyroidism: Patient is currently not any thyroid supplementation we will check a TSH (4) Moderate pulmonary arterial systolic hypertension: Admission and Anticipated Discharge Date Admission Date: June 07, 2020 Subjective this pt is acutely delirious and encephalopathic, not clear of etiology using some haldol and will try some hs zyprexa Review of Systems Review of Systems: Mild distress and fatigue no headache, blurry or double vision no speech or swallowing issues no chest pain, pressure or palpitations no shortness of breath, cough or wheezes no abdominal pain, nausea or vomiting, diarrhea or constipation no dysuria, hematuria or frequency focal left hip pain and some swelling to thigh no back pain, CVA tenderness or radicular pain no bruising, bleeding or rashes no focal signs of weakness or numbness or altered sensation no complaints of anxiety or depression.. Physical Exam Physical Exam: The patient appeared well nourished and normally developed. Vital signs as documented. Head exam is normocephalic atraumatic no scleral icterus Neck is without JVD, thyromegaly, or carotid bruits. Lungs are clear to auscultation, no focal loss of breath sounds Cardiac exam, tachycardic and irregular [place] is heard Abdominal exam reveals normal bowel sounds, soft non tender, no masses Extremities left sided hip pain and some swelling Neurologic exam is alert and oriented, no focal loss of strength or sensation Skin is without bruises or rashes Psychologically is without concerns for anxiety or depression Results & Data Results & Data ([facility]) Vital Signs (Past 12 Hours) Vital Signs Temp Pulse Pulse Pulse Pulse Resp BP 06/08/20 16:20 98.1 F 122 H 16 06/08/20 16:10 98.1 F 115 H 19 06/08/20 16:00 128 H 20 06/08/20 15:50 126 H 18 06/08/20 15:40 118 H 18 06/08/20 15:32 99.0 F 122 H 14 06/08/20 12:45 98.2 F 105 H 20 06/08/20 11:20 94 H 06/08/20 11:04 128 H 06/08/20 08:03 133 H 130/79 06/08/20 07:52 99.1 F 88 19 BP BP Pulse Ox 06/08/20 16:20 131/67 96 06/08/20 16:10 121/84 95 06/08/20 16:00 121/67 93 06/08/20 15:50 128/72 95 06/08/20 15:40 119/77 94 06/08/20 15:32 134/91 92 06/08/20 12:45 129/95 96 06/08/20 11:20 117/76 06/08/20 11:04 127/77 06/08/20 08:03 06/08/20 07:52 130/79 95 PG Care Time/CCT Total # of Minutes Spent Total Time Spent with Patient: Total time spent is greater than 50% in coordination of care (as documented) at patient's floor/unit and/or counseling patient: Coding Level of Care Code 00639 Subseq Hosp Care Lvl 3 Diagnoses Subcapital fracture of left hip S72.012A Permanent atrial fibrillation I48.2 Acquired autoimmune hypothyroidism E06.3 Moderate pulmonary arterial systolic hypertension I27.21
[2020-06-08] MEDS: ceFAZolin 2000MG 2,000 MG/15 ML SYR IV SCH (21:20)
[2020-06-08] MEDS: SENNA 8.6 MG TAB PO SCH (21:21)
[2020-06-08] MEDS: ACETAMINOPHEN 500 MG TAB PO SCH (21:21)
[2020-06-08] MEDS: DOCUSATE SODIUM 100 MG CAP PO SCH (21:21)
[2020-06-09] MEDS: ACETAMINOPHEN 500 MG TAB PO SCH ×3 (06:21→20:35)
[2020-06-09] MEDS: ceFAZolin 2000MG 2,000 MG/15 ML SYR IV SCH (06:22)
[2020-06-09 06:42] LABS: Hematocrit (blood only) 33.7 % (37-47); Hemoglobin 11.3 g/dL (12.0-16.0); Immature Granulocytes # (auto) 0.01 K/uL (0.00-0.02); Immature Granulocytes % (auto) 0.1 %; Lymphocytes % (auto) 7.8 %; Mean Corpuscular Hemoglobin 29.7 pg (25-34); Mean Corpuscular Hgb Conc 33.5 g/dL (32-36); Mean Corpuscular Volume 88.5 fL (80-100); Mean Platelet Volume 11.7 fL (7.4-10.4); Monocytes # (auto) 0.66 K/uL (0.11-0.59); Monocytes % (auto) 7.3 %; Neutrophils # (auto) 7.61 K/uL (1.4-6.5); Neutrophils % (auto) 84.8 %; Platelet Count 157 K/uL (130-400); RDW Standard Deviation 45.4 fL (36.4-46.3); Red Blood Count 3.81 M/uL (4.2-5.4); White Blood Count 8.98 K/uL (4.8-10.8)
[2020-06-09 07:14] LABS: BUN Creatinine Ratio 26.9 (10-20); Calcium 8.8 mg/dl (8.5-10.1); Creatinine Clr Calc Pharmacy 55.9 ml/min; Est GFR (African American) 75.5; Est GFR (Non-African American) 65.2; Potassium 4.4 mmol/L (3.5-5.1)
[2020-06-09 07:24] LABS: Thyroid Stimulating Hormone 1.84 uIu/ml (0.300-4.500)
--- NOTE | 2020-06-09 08:17 | Orthopedic Progress Note ---
Date of Service June 09, 2020 Assessment & Plan (1) Closed fracture of left hip: Overall she is doing very well. She is having much pain in the left hip. She can be seen by physical therapy today for ambulation and range of motion exercises. She is on Eliquis for DVT prophylaxis. She can be discharged to home or to rehab when medically stable. Full orthopedic discharge instructions were placed in the discharge summary. She will follow-up with orthopedics in 2 weeks. Subjective Radha was seen and examined at bedside this morning. Overall she is doing very well. She denies any pain in the left hip. She was able to get some sleep last night. She has no complaints.. Review of Systems All systems reviewed & are unremarkable except as noted in HPI & below. Physical Exam On physical examination of her left hip, the dressing is clean and dry. Her leg is out in full extension. She has active dorsiflexion plantarflexion of her left ankle.. Results & Data Results & Data Laboratory Results H & H 06/07/20 06/08/20 06/09/20 Range/Units 06:09 06:52 06:15 Hgb 14.3 13.2 11.3 L (12.0-16.0) g/dL Hct 42.6 40.1 33.7 L (37-47) % Coagulation 06/07/20 Range/Units 06:09 INR 1.1 (0.9-1.1) . Diagnostic Findings Postoperative x-rays of the left hip show the prosthesis to be in anatomic alignment without any evidence of fracture, dislocation, or loosening. PG Care Time/CCT Total # of Minutes Spent Total Time Spent with Patient: Total time spent is greater than 50% in coordination of care (as documented) at patient's floor/unit and/or counseling patient: Coding Level of Care Code 98526 Post Operative Follow-Up Diagnoses Closed fracture of left hip S72.002A Encounter type: initial encounter (1) Closed fracture of left hip Encounter type: initial encounter Qualified Code(s): S72.002A - Fracture of unspecified part of neck of left femur, initial encounter for closed fracture
[2020-06-09] MEDS: TRIAMTERENE/HCTZ 37.5/25MG TAB PO SCH (08:57)
[2020-06-09] MEDS: DOCUSATE SODIUM 100 MG CAP PO SCH ×2 (08:58→20:36)
[2020-06-09] MEDS: METOPROLOL SUCC 50MG EXT REL TAB PO SCH ×3 (08:58→20:36)
[2020-06-09] MEDS: CHOLECALCIFEROL 1,000 UNITS 25 MCG TAB PO SCH (08:58)
[2020-06-09] MEDS: MULTIVITAMIN TAB PO SCH (08:58)
[2020-06-09] MEDS ORDERED: dilTIAZem HCL 30 MG TAB PO SCH (11:00)
--- NOTE | 2020-06-09 15:41 | Hospitalist Progress Note ---
Date of Service June 09, 2020 Assessment & Plan (1) Subcapital fracture of left hip: surgery was performed on 06/08/2020 Left Total Hip Arthroplasty Anterior Approach (2) Permanent atrial fibrillation: NOT with good rate control at this time Patient typically takes metoprolol 100 mg succinate 3 times daily with the supervision of Dr. Olivares. Her apixaban is held and a diuretic will be continued at this point in time did add diltiazem gtt to help with perioperative rate control transition to po diltiazem, pt states she was cardioverted in the past but did not last long, if rate not controlled with diltiazem consider digoxin, concern if rate is required to sustain CO given MR may reduce some of her EF by allowing LV contents to flow backward restart anticoagulation in 24 hours if post op anemia is stable apixiban starts in pm 06/09 Last echocardiogram from December 14, 2019 shows an EF of 45 to 50% global hypokinesis of the left ventricle moderate to severe mitral regurgitation elevated right ventricular systolic pressures subsequently there be concern the patient has some chronic systolic heart failure and 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 (3) Acquired autoimmune hypothyroidism: Patient is currently not any thyroid supplementation we will check a TSH (4) Moderate pulmonary arterial systolic hypertension: Admission and Anticipated Discharge Date Admission Date: June 07, 2020 Subjective pt is awake and alert, yesterdays note was in error she did not have encephalpathy, this was entered erroneously, she is doing well but having challenges with heart rate control with atrial fibrillation, concern that MR may lead to having higher rate to compensate for loss of EF by valve incompetence, cardiology is following along Review of Systems Review of Systems: Mild distress and fatigue no headache, blurry or double vision no speech or swallowing issues no chest pain, pressure or palpitations no shortness of breath, cough or wheezes, fatigues easily at PT no abdominal pain, nausea or vomiting, diarrhea or constipation no dysuria, hematuria or frequency focal left hip pain and some swelling to thigh no back pain, CVA tenderness or radicular pain no bruising, bleeding or rashes no focal signs of weakness or numbness or altered sensation no complaints of anxiety or depression.. Physical Exam Physical Exam: The patient appeared well nourished and normally developed. Vital signs as documented. Head exam is normocephalic atraumatic no scleral icterus Neck is without JVD, thyromegaly, or carotid bruits. Lungs are clear to auscultation, no focal loss of breath sounds, no concerns for HF Cardiac exam, tachycardic and irregular oneida is heard, rate control is not achieved Abdominal exam reveals normal bowel sounds, soft non tender, no masses Extremities left sided hip pain and some swelling, wound is C/D/I Neurologic exam is alert and oriented, no focal loss of strength or sensation Skin is without bruises or rashes Psychologically is without concerns for anxiety or depression Results & Data Results & Data ([facility]) Vital Signs (Past 12 Hours) Vital Signs Temp Pulse Pulse Resp BP Pulse Ox 06/09/20 15:31 102 H 06/09/20 12:00 97.3 F L 75 18 106/63 97 06/09/20 10:17 116 H 06/09/20 07:59 97.5 F L 88 20 116/77 96 PG Care Time/CCT Total # of Minutes Spent Total Time Spent with Patient: Total time spent is greater than 50% in coordination of care (as documented) at patient's floor/unit and/or counseling patient: Coding Level of Care Code 29509 Subseq Hosp Care Lvl 3 Diagnoses Subcapital fracture of left hip S72.012A Permanent atrial fibrillation I48.2 Acquired autoimmune hypothyroidism E06.3 Moderate pulmonary arterial systolic hypertension I27.21
[2020-06-09] MEDS: dilTIAZem HCl 60 MG TAB PO SCH ×2 (17:38→23:00)
[2020-06-09] MEDS: dilTIAZem HCL 125 MG in DEXTROSE 5% 100 ML IV SCH (18:38)
[2020-06-09] MEDS: SENNA 8.6 MG TAB PO SCH (20:34)
[2020-06-09] MEDS: APIXABAN 5 MG TABLET PO SCH (22:23)
[2020-06-10] MEDS: dilTIAZem HCl 60 MG TAB PO SCH ×2 (05:30→11:52)
[2020-06-10] MEDS: ACETAMINOPHEN 500 MG TAB PO SCH ×3 (05:31→20:44)
[2020-06-10 07:26] LABS: Hematocrit (blood only) 31.3 % (37-47); Hemoglobin 10.4 g/dL (12.0-16.0); Mean Corpuscular Hemoglobin 29.1 pg (25-34); Mean Corpuscular Hgb Conc 33.2 g/dL (32-36); Mean Corpuscular Volume 87.7 fL (80-100); Mean Platelet Volume 12.1 fL (7.4-10.4); Platelet Count 158 K/uL (130-400); RDW Coefficient of Variation 13.6 % (11.5-14.5); Red Blood Count 3.57 M/uL (4.2-5.4); White Blood Count 9.07 K/uL (4.8-10.8)
[2020-06-10 07:53] LABS: BUN Creatinine Ratio 34.7 (10-20); Calcium 8.2 mg/dl (8.5-10.1); Creatinine Clr Calc Pharmacy 53.7 ml/min; Est GFR (African American) 71.4; Est GFR (Non-African American) 61.6; Potassium 4.4 mmol/L (3.5-5.1)
[2020-06-10] MEDS: APIXABAN 5 MG TABLET PO SCH ×2 (08:07→20:43)
[2020-06-10] MEDS: CHOLECALCIFEROL 1,000 UNITS 25 MCG TAB PO SCH (08:07)
[2020-06-10] MEDS: DOCUSATE SODIUM 100 MG CAP PO SCH ×2 (08:07→20:43)
[2020-06-10] MEDS: METOPROLOL SUCC 50MG EXT REL TAB PO SCH ×3 (08:08→20:43)
[2020-06-10] MEDS: MULTIVITAMIN TAB PO SCH (08:08)
[2020-06-10] MEDS ORDERED: DIGOXIN 250 MCG in SYRINGE 9 ML IV STA (16:36)
--- NOTE | 2020-06-10 16:45 | Hospitalist Progress Note ---
Date of Service June 10, 2020 Assessment & Plan (1) Subcapital fracture of left hip: surgery was performed on 06/08/2020 Left Total Hip Arthroplasty Anterior Approach (2) Permanent atrial fibrillation: NOT with good rate control at this time Patient typically takes metoprolol 100 mg succinate 3 times daily with the supervision of Dr. Olivares. Her apixaban is restarted did add diltiazem gtt to help with perioperative rate control transition to po diltiazem, escalation of doses of diltiazem did not help rate and lowered bp, will try digoxin and follow, does have lower EF on Echo continues on Dyazide restart anticoagulation in 24 hours if post op anemia is stable apixiban starts in pm 06/09 Echocardiogram shows an EF of 45 to 50% global hypokinesis of the left ventricle mild to moderate mitral regurgitation elevated right ventricular systolic pressures subsequently there be concern the patient has some chronic systolic heart failure and 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 (3) HFrEF (heart failure with reduced ejection fraction): pt is not on afterload reduction but blood pressure limits its use currently (4) Moderate pulmonary arterial systolic hypertension: reamins no mild diuretic (5) Acquired autoimmune hypothyroidism: Patient is currently not any thyroid supplementation nromal TSH (6) DVT prophylaxis: apixiban Admission and Anticipated Discharge Date Admission Date: June 07, 2020 Subjective pt is awake and alert, she is doing well but having challenges with heart rate control with atrial fibrillation, concern that MR may lead to having higher rate to compensate for loss of EF by valve incompetence, cardiology is following along initially had recommended diltiazem and escalation of doses did not help with rate control but did have lower bp Review of Systems Review of Systems: Mild distress and fatigue no headache, blurry or double vision no speech or swallowing issues no chest pain, pressure or palpitations no shortness of breath, cough or wheezes, fatigues easily at PT no abdominal pain, nausea or vomiting, diarrhea or constipation no dysuria, hematuria or frequency focal left hip pain and some swelling to thigh no back pain, CVA tenderness or radicular pain no bruising, bleeding or rashes no focal signs of weakness or numbness or altered sensation no complaints of anxiety or depression.. Physical Exam Physical Exam: The patient appeared well nourished and normally developed. Vital signs as documented. Head exam is normocephalic atraumatic no scleral icterus Neck is without JVD, thyromegaly, or carotid bruits. Lungs are clear to auscultation, no focal loss of breath sounds, no concerns for HF Cardiac exam, tachycardic and irregular oneida is heard, rate control is not achieved Abdominal exam reveals normal bowel sounds, soft non tender, no masses Extremities left sided hip pain and some swelling, wound is C/D/I Neurologic exam is alert and oriented, no focal loss of strength or sensation Skin is without bruises or rashes Psychologically is without concerns for anxiety or depression Results & Data Results & Data ([facility]) Vital Signs (Past 12 Hours) Vital Signs Temp Pulse Resp BP Pulse Ox 06/10/20 16:34 98.6 F 110 H 18 102/70 92 06/10/20 11:55 105 H 20 110/72 91 06/10/20 07:59 97.3 F L 119 H 18 94/67 L 97 06/10/20 05:30 104 H 103/68 06/10/20 05:03 98.2 F 103 H 16 91/61 L 97 PG Care Time/CCT Total # of Minutes Spent Total Time Spent with Patient: Total time spent is greater than 50% in coordination of care (as documented) at patient's floor/unit and/or counseling patient: Coding Level of Care Code 09097 Subseq Hosp Care Lvl 3 Diagnoses Subcapital fracture of left hip S72.012A Permanent atrial fibrillation I48.2 HFrEF (heart failure with reduced ejection fraction) I50.20 Moderate pulmonary arterial systolic hypertension I27.21 Acquired autoimmune hypothyroidism E06.3 DVT prophylaxis Z29.9
[2020-06-10] MEDS: SENNA 8.6 MG TAB PO SCH (20:44)
[2020-06-10] MEDS ORDERED: DIGOXIN 250 MCG in SYRINGE 9 ML IV ONE (23:00)
[2020-06-11] MEDS: ACETAMINOPHEN 500 MG TAB PO SCH ×3 (05:22→22:24)
[2020-06-11 07:41] LABS: Hematocrit (blood only) 30.2 % (37-47); Hemoglobin 10.1 g/dL (12.0-16.0); Mean Corpuscular Hemoglobin 29.2 pg (25-34); Mean Corpuscular Hgb Conc 33.4 g/dL (32-36); Mean Corpuscular Volume 87.3 fL (80-100); Mean Platelet Volume 11.9 fL (7.4-10.4); Platelet Count 161 K/uL (130-400); RDW Coefficient of Variation 13.7 % (11.5-14.5); RDW Standard Deviation 43.4 fL (36.4-46.3); Red Blood Count 3.46 M/uL (4.2-5.4); White Blood Count 7.55 K/uL (4.8-10.8)
[2020-06-11 08:14] LABS: BUN Creatinine Ratio 30.2 (10-20); Calcium 8.3 mg/dl (8.5-10.1); Creatinine Clr Calc Pharmacy 68.5 ml/min; Est GFR (African American) 94.6; Est GFR (Non-African American) 81.6; Potassium 3.8 mmol/L (3.5-5.1)
[2020-06-11] MEDS: CHOLECALCIFEROL 1,000 UNITS 25 MCG TAB PO SCH (08:40)
[2020-06-11] MEDS: METOPROLOL SUCC 50MG EXT REL TAB PO SCH ×3 (08:40→21:35)
[2020-06-11] MEDS: MULTIVITAMIN TAB PO SCH (08:40)
[2020-06-11] MEDS: DOCUSATE SODIUM 100 MG CAP PO SCH ×2 (08:40→21:36)
[2020-06-11] MEDS: APIXABAN 5 MG TABLET PO SCH ×2 (08:40→21:34)
--- NOTE | 2020-06-11 15:43 | Cardiology Consultation ---
Date of Consultation June 11, 2020 Assessment & Plan (1) Permanent atrial fibrillation: -heart rate now adequately control with the addition of intravenous digoxin. -continue metoprolol succinate at 100 mg t.i.d. -would switch to oral digoxin at time of discharge. -continue Eliquis at 5 mg b.i.d. (2) HFrEF (heart failure with reduced ejection fraction): -left ventricular systolic function mildly reduced at 40-45%. -this has been a chronic finding. -patient is euvolemic at this time. (3) Severe tricuspid regurgitation by prior echocardiogram: -has been noted on prior echocardiograms. (4) Moderate to severe mitral regurgitation: -graded as mild to moderate on current echocardiogram. History of Present Illness Attending Physician: Michele Alexander History of Present Illness Mrs. Pathak is an 79-year-old female admitted on June 07 with a left hip fracture related to mechanical fall. She has demonstrated a rapid ventricular response to her permanent atrial fibrillation, and therefore, this consultation was ordered. Of note, the patient typically follows with Dr. Olivares in the outpatient setting. The patient was in her usual state of health until the day of presentation. She was walking down her hallway and attempted to quickly pass her when she collided with him and then fell to the ground injuring her left hip. The patient underwent a left total hip replacement on the . Postoperatively, the patient has demonstrated elevated ventricular response rates in the 100-120 range. Digoxin was added yesterday by Dr. Matt and her heart rate is now mainly below 100 beats per minute. The patient's ventricular response to her atrial fibrillation has been difficult to manage according to Dr. Olivares note of January 26, 2020. He had consider the addition of digoxin. The patient has known valvular heart disease. An echocardiogram performed on December 14, 2019 noted mild left ventricular dysfunction with ejection fraction 45-50%. There was moderate to severe mitral and severe tricuspid regurgitation. This was unchanged from study done on March 10, 2018. Currently, patient is resting comfortably in bed without complaints of chest pain, dyspnea, or palpitations. Past medical and surgical history 1. Permanent atrial fibrillation 2. Moderate to severe mitral regurgitation 3. Severe tricuspid regurgitation. 4. Pulmonary hypertension 5. Mild left ventricular dysfunction 6. Hyperglycemia 7. GERD 8. Asthma 9. DJD 10. Osteopenia 11. Appendectomy 12. Bilateral intra-ocular lens implants Social history lives with her No tobacco Social alcohol Family history Noncontributory Review of systems A 10 review systems was negative except for that described above. Allergies Allergy/AdvReac Type Severity Reaction Status Date / Time adhesive Allergy Mild Rash Verified 06/07/20 07:27 Home Medications Medication Instructions Recorded Confirmed Type cholecalciferol (vitamin D3) 50 2,000 units PO QDD 11/10/17 06/07/20 History mcg (2,000 unit) capsule albuterol sulfate 90 mcg/actuation See Rx Instructions INH .COMPLEX 08/17/18 06/07/20 Rx aerosol inhaler PRN #6.7 gm apixaban 5 mg tablet 5 mg PO BID #180 tab 12/14/19 06/07/20 Rx metoprolol succinate 100 mg 100 mg PO TID #270 tab 02/28/20 06/07/20 Rx tablet,extended release 24 hr triamterene 37.5 1 tab PO .COMPLEX #30 tab 05/16/20 06/07/20 Rx mg-hydrochlorothiazide 25 mg tablet calcium carbonate-vitamin D3 1 tab PO TID 06/07/20 06/07/20 History [Calcium 600 + D(3)] metoprolol tartrate 50 mg PO DAILY PRN 06/07/20 06/07/20 History Patient History Medical History (Updated 06/11/20 @ 15:40 by Gautam Alonzo MD) Arthritis HIPS Asthma MILD Exertional shortness of breath Gastroesophageal reflux disease HX OF History of basal cell carcinoma of skin Moderate to severe mitral regurgitation Osteopenia Permanent atrial fibrillation DX 25 YRS AGO, HX CARDIOVERSION BUT AFIB RETURNED. Prediabetes Severe tricuspid regurgitation by prior echocardiogram Tachycardia Varicose veins with pain Surgical History (Updated 06/09/20 @ 08:17 by Omid Kirk DO) History of ankle surgery MANIPULATION, RIGHT ANKLE History of appendectomy History of cardioversion History of cataract surgery BILAT History of colonoscopy Family History Father Cardiac disorder Stroke Mother Dementia Diabetes Denies family history of Ovarian cancer Prostate cancer Myocardial infarction Breast cancer Colorectal cancer Social History Smoking Status: Never smoker Second Hand Exposure: No; Hx Alcohol Use: Yes Alcohol type: wine Hx Substance Use: No Preferred Language: Nepalese Communication Ability: Effective Visual Impairment: No Limitations Hearing Ability: Normal Director Of Media Required: No Beliefs That Will Affect Care: None marital status: Current Living Situation: Spouse current occupational status: retired How many Children do You have: 3 Other Information That Helps Us Care for You: No Feels Safe at Home: Yes Safety Concerns: Feels Safe At This Time Childhood Exposure to Second-Hand Smoke: No caffeine: Yes during the past year weight has: remained stable Dental Care, Regularly: Yes Physical Activity Frequency: 1-2 Times per Week Seatbelt Use: always Sunscreen Use: Yes Assistive Devices: Glasses Physical Exam Physical Exam: In general is a well-developed well-nourished white female no acute distress. HEENT exam is negative. Neck is supple with full carotid upstrokes. There are no carotid bruits. Jugular is pressure is flat at 90. T here is no thyromegaly. Cardiovascular exam reveals an irregular regular rhythm with a 1/6 systolic murmur along the left sternal border. Lungs are clear without rales, rhonchi or wheezes. Abdomen is soft without bruits. Extremities reveal intact radial artery pulses bilaterally. There is no peripheral edema. Left hip is dressed. Results & Data ([facility]) Vital Signs (Past 12 Hours) Vital Signs Temp Pulse Resp BP Pulse Ox 06/11/20 08:22 36.4 C L 91 H 17 108/66 94 06/11/20 03:35 36.7 C 75 19 102/67 96 Laboratory Results CBC notes hemoglobin 10.1, hematocrit 30.2, white count 7.55, and platelet count 161 1000. Electrolytes note a sodium of 132, potassium 3.8, chloride 100, bicarb 20, BUN 21, creatinine 0.69, and glucose of 91. Diagnostic Findings EKG notes atrial fibrillation with rapid ventricular response and nonspecific ST abnormality. Echocardiogram performed yesterday noted mild left trigger dysfunction with ejection fraction of 40-45%. There was mild global hypokin esis. There is mild to moderate mitral and severe tricuspid regurgitation. Chest x-ray shows cardiomegaly. PG Care Time/CCT Total # of Minutes Spent Total Time Spent with Patient: Total time spent is greater than 50% in coordination of care (as documented) at patient's floor/unit and/or counseling patient: Coding Level of Care Code 53152 Initial In Care Lvl 3 Diagnoses Permanent atrial fibrillation I48.2 HFrEF (heart failure with reduced ejection fraction) I50.20 Severe tricuspid regurgitation by prior echocardiogram I07.1 Moderate to severe mitral regurgitation I34.0
[2020-06-11] MEDS ORDERED: DIGOXIN 250 MCG in SYRINGE 9 ML IV SCH (16:00)
[2020-06-11] MEDS ORDERED: DIGOXIN 125 MCG in SYRINGE 9.5 ML IV SCH (16:00)
[2020-06-11] MEDS: SENNA 8.6 MG TAB PO SCH (21:35)
--- NOTE | 2020-06-11 21:49 | Hospitalist Progress Note ---
Date of Service June 11, 2020 Assessment & Plan (1) Subcapital fracture of left hip: surgery was performed on 06/08/2020 Left Total Hip Arthroplasty Anterior Approach (2) Permanent atrial fibrillation: NOT with good rate control at this time Started on DIG OV will consult cardio. Patient typically takes metoprolol 100 mg succinate 3 times daily with the supervision of Dr. Olivares. Her apixaban is restarted did add diltiazem gtt to help with perioperative rate control transition to po diltiazem, escalation of doses of diltiazem did not help rate and lowered bp, will try digoxin and follow, does have lower EF on Echo continues on Dyazide restart anticoagulation in 24 hours if post op anemia is stable apixiban starts in pm 06/09 Echocardiogram shows an EF of 45 to 50% global hypokinesis of the left ventricle mild to moderate mitral regurgitation elevated right ventricular systolic pressures subsequently there be concern the patient has some chronic systolic heart failure and 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 She has no new complaints at this time. Review of Systems Review of Systems: Mild distress and fatigue no headache, blurry or double vision no speech or swallowing issues no chest pain, pressure or palpitations no shortness of breath, cough or wheezes, fatigues easily at PT no abdominal pain, nausea or vomiting, diarrhea or constipation no dysuria, hematuria or frequency focal left hip pain and some swelling to thigh no back pain, CVA tenderness or radicular pain no bruising, bleeding or rashes no focal signs of weakness or numbness or altered sensation no complaints of anxiety or depression.. Physical Exam Physical Exam: The patient appeared well nourished and normally developed. Vital signs as documented. Head exam is normocephalic atraumatic no scleral icterus Neck is without JVD, thyromegaly, or carotid bruits. Lungs are clear to auscultation, no focal loss of breath sounds, no concerns for HF Cardiac exam, tachycardic and irregular oneida is heard, rate control is not achieved Abdominal exam reveals normal bowel sounds, soft non tender, no masses Extremities left sided hip pain and some swelling, wound is C/D/I Neurologic exam is alert and oriented, no focal loss of strength or sensation Skin is without bruises or rashes Psychologically is without concerns for anxiety or depression Results & Data Results & Data ([facility]) Vital Signs (Past 12 Hours) Vital Signs Temp Pulse Pulse Resp BP Pulse Ox 06/11/20 19:40 36.6 C 98 H 15 111/65 91 06/11/20 17:01 105 H 06/11/20 15:44 36.5 C 105 H 19 101/67 93 PG Care Time/CCT Total # of Minutes Spent Total Time Spent with Patient: Total time spent is greater than 50% in coordination of care (as documented) at patient's floor/unit and/or counseling patient: Coding Level of Care Code 91509 Subseq Hosp Care Lvl 3 Diagnoses Subcapital fracture of left hip S72.012A Permanent atrial fibrillation I48.2 HFrEF (heart failure with reduced ejection fraction) I50.20 Moderate pulmonary arterial systolic hypertension I27.21 Acquired autoimmune hypothyroidism E06.3 DVT prophylaxis Z29.9 Time Spent (min) 35
[2020-06-12] MEDS: ACETAMINOPHEN 500 MG TAB PO SCH ×3 (05:49→21:18)
[2020-06-12] MEDS: DOCUSATE SODIUM 100 MG CAP PO SCH ×2 (08:38→21:15)
[2020-06-12] MEDS: CHOLECALCIFEROL 1,000 UNITS 25 MCG TAB PO SCH (08:39)
[2020-06-12] MEDS: MULTIVITAMIN TAB PO SCH (08:39)
[2020-06-12] MEDS: METOPROLOL SUCC 50MG EXT REL TAB PO SCH ×3 (08:39→21:14)
[2020-06-12] MEDS: TRIAMTERENE/HCTZ 37.5/25MG TAB PO SCH (08:39)
[2020-06-12] MEDS: APIXABAN 5 MG TABLET PO SCH ×2 (08:39→21:15)
[2020-06-12 09:39] LABS: Hematocrit (blood only) 37.2 % (37-47); Hemoglobin 12.3 g/dL (12.0-16.0); Mean Corpuscular Hemoglobin 29.5 pg (25-34); Mean Corpuscular Hgb Conc 33.1 g/dL (32-36); Mean Corpuscular Volume 89.2 fL (80-100); Mean Platelet Volume 11.1 fL (7.4-10.4); Platelet Count 203 K/uL (130-400); RDW Coefficient of Variation 13.9 % (11.5-14.5); RDW Standard Deviation 45.4 fL (36.4-46.3); Red Blood Count 4.17 M/uL (4.2-5.4); White Blood Count 9.98 K/uL (4.8-10.8)
[2020-06-12] MEDS ORDERED: DIGOXIN 250 MCG in SYRINGE 9 ML IV STA (09:54)
--- NOTE | 2020-06-12 10:03 | Cardiology Progress Note ---
Date of Service June 12, 2020 Assessment & Plan (1) Permanent atrial fibrillation: --rate uncontrolled 2. Hip fracture--status post surgical repair 3. LV dysfunction 4. Valvular heart disease --Severe TR, moderate to severe MR Patient's heart rate initially improved after starting IV digoxin but now with recurrent elevated rates overnight and this morning. Will give digoxin 250 mcg IV now and increase daily dose to 250 mcg as well. Transition to oral digoxin at time of discharge. Continue current metoprolol succinate 100 mg t.i.d. Continue Eliquis 5 mg b.i.d. for stroke risk reduction. On exam she appears well perfused without signs of heart failure. Admission and Anticipated Discharge Date Admission Date: June 07, 2020 Subjective Patient resting comfortably this morning. States she is feeling well overall. Had a brief episode of lightheadedness this morning when walking back from using the restroom. No recurrent symptoms. Denies palpitations. No chest pain, dyspnea, orthopnea, PND or edema. Tele reviewed--Atrial fibrillation with RVR low 100s up to 170s at times. Review of Systems Review of Systems: All systems reviewed & are unremarkable except as noted in HPI & below Physical Exam Physical Exam: General: No acute distress, comfortable. HEENT: Head is normal. PERRLA. EOMI. Sclerae anicteric. Neck: Normal carotid upstrokes, no bruits. No appreciable JVD. Lungs: Clear to auscultation bilaterally without rales, rhonchi or wheezes. Cardiac: Irregularly irregular, tachycardic. S1-S2 normal. 1/6 systolic murmur Abdomen: Soft and nontender. Bowel sounds normal. No mass or organomegaly. No abdominal bruit. Extremities/vascular: --Well perfused. No peripheral edema. --Radial, DP and PT pulses 2+ bilaterally Skin: No rash or abnormal lesions. Normal turgor. Neurologic: Nonfocal Psychiatric: Affect appropriate. Alert and oriented. Results & Data ([facility]) Vital Signs (Past 12 Hours) Vital Signs Temp Pulse Resp BP Pulse Ox 06/12/20 07:17 36.8 C 108 H 19 122/77 94 06/12/20 04:00 36.2 C L 56 L 20 108/61 92 06/11/20 23:48 36.7 C 89 19 104/66 92 Laboratory Results Laboratory Results - last 24 hr 06/12/20 06/12/20 09:29 09:29 WBC 9.98 RBC 4.17 L Hgb 12.3 Hct 37.2 MCV 89.2 MCH 29.5 MCHC 33.1 RDW Std Deviation 45.4 RDW Coeff of Harry 13.9 Plt Count 203 MPV 11.1 H Sodium Pending Potassium Pending Chloride Pending Carbon Dioxide Pending Anion Gap Pending BUN Pending Creatinine Pending Est Cr Clr Drug Dosing Pending Est GFR ( Amer) Pending Est GFR (Non-Af Amer) Pending BUN/Creatinine Ratio Pending Glucose Pending Calcium Pending Troponin I Pending PG Care Time/CCT Total # of Minutes Spent Total Time Spent with Patient: Total time spent is greater than 50% in coordination of care (as documented) at patient's floor/unit and/or counseling patient: Coding Level of Care Code 84470 Subseq Hosp Care Lvl 3 Diagnoses Permanent atrial fibrillation I48.2
[2020-06-12 10:14] LABS: BUN Creatinine Ratio 21.9 (10-20); Blood Urea Nitrogen 17 mg/dl (7-18); Calcium 8.7 mg/dl (8.5-10.1); Carbon Dioxide 28 mmol/L (21-32); Chloride 99 mmol/L (98-107); Creatinine Clr Calc Pharmacy 60.7 ml/min; Est GFR (African American) 82.6; Est GFR (Non-African American) 71.3; Glucose 119 mg/dl (70-99); Potassium 3.3 mmol/L (3.5-5.1); Sodium 135 mmol/L (136-145)
[2020-06-12 10:18] LABS: Troponin I < 0.015 ng/ml (0-0.045)
[2020-06-12] MEDS: DIGOXIN 250 MCG in SYRINGE 9 ML IV SCH (16:50)
[2020-06-12] MEDS: POTASSIUM CHLORIDE CRTAB 20 MEQ TABCR PO SCH (21:13)
[2020-06-12] MEDS: SENNA 8.6 MG TAB PO SCH (21:14)
--- NOTE | 2020-06-12 21:18 | Hospitalist Progress Note ---
Date of Service June 12, 2020 Assessment & Plan (1) Subcapital fracture of left hip: surgery was performed on 06/08/2020 Left Total Hip Arthroplasty Anterior Approach (2) Permanent atrial fibrillation: NOT with good rate control at this time Started on DIG IV Appreciate input from cardio. will increase dig. will hold discharge and monitor heart rate. Patient typically takes metoprolol 100 mg succinate 3 times daily with the supervision of Dr. Olivares. Her apixaban is restarted did add diltiazem gtt to help with perioperative rate control transition to po diltiazem, escalation of doses of diltiazem did not help rate and lowered bp, will try digoxin and follow, does have lower EF on Echo continues on Dyazide restart anticoagulation in 24 hours if post op anemia is stable apixiban starts in pm 06/09 Echocardiogram shows an EF of 45 to 50% global hypokinesis of the left ventricle mild to moderate mitral regurgitation elevated right ventricular systolic pressures subsequently there be concern the patient has some chronic systolic heart failure and 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 TELEMONITOR is showing elevated HR in the 150s. Review of Systems 2 Review of Systems: All systems reviewed & are unremarkable except as noted in HPI & below Physical Exam Physical Exam: The patient appeared well nourished and normally developed. Vital signs as documented. Head exam is normocephalic atraumatic no scleral icterus Neck is without JVD, thyromegaly, or carotid bruits. Lungs are clear to auscultation, no focal loss of breath sounds, no concerns for HF Cardiac exam, tachycardic and irregular [place] is heard, rate control is not achieved Abdominal exam reveals normal bowel sounds, soft non tender, no masses Extremities left sided hip pain and some swelling, wound is C/D/I Neurologic exam is alert and oriented, no focal loss of strength or sensation Skin is without bruises or rashes Psychologically is without concerns for anxiety or depression Results & Data Results & Data ([facility]) Vital Signs (Past 12 Hours) Vital Signs Temp Pulse Pulse Resp BP BP Pulse Ox 06/12/20 19:39 36.8 C 88 12 105/66 95 06/12/20 16:50 85 06/12/20 15:28 36.6 C 85 16 106/66 96 06/12/20 12:23 36.6 C 79 18 124/68 100 06/12/20 11:06 127 H PG Care Time/CCT Total # of Minutes Spent Total Time Spent with Patient: Total time spent is greater than 50% in coordination of care (as documented) at patient's floor/unit and/or counseling patient: Coding Level of Care Code 13327 Subseq Hosp Care Lvl 2 Diagnoses Subcapital fracture of left hip S72.012A Permanent atrial fibrillation I48.2 HFrEF (heart failure with reduced ejection fraction) I50.20 Moderate pulmonary arterial systolic hypertension I27.21 Acquired autoimmune hypothyroidism E06.3 DVT prophylaxis Z29.9 Time Spent (min) 25
[2020-06-13] MEDS: ACETAMINOPHEN 500 MG TAB PO SCH ×3 (06:27→20:43)
[2020-06-13] MEDS: POTASSIUM CHLORIDE CRTAB 20 MEQ TABCR PO SCH ×2 (08:03→20:43)
[2020-06-13] MEDS: DOCUSATE SODIUM 100 MG CAP PO SCH ×2 (08:04→20:43)
[2020-06-13] MEDS: METOPROLOL SUCC 50MG EXT REL TAB PO SCH ×3 (08:06→20:43)
[2020-06-13] MEDS: MULTIVITAMIN TAB PO SCH (08:06)
[2020-06-13] MEDS: CHOLECALCIFEROL 1,000 UNITS 25 MCG TAB PO SCH (08:06)
[2020-06-13] MEDS: APIXABAN 5 MG TABLET PO SCH ×2 (08:06→20:43)
--- NOTE | 2020-06-13 12:15 | Cardiology Progress Note ---
Date of Service June 13, 2020 Assessment & Plan (1) Permanent atrial fibrillation: -heart rate now adequately control with the addition of intravenous digoxin. -continue metoprolol succinate at 100 mg t.i.d. -switch to oral digoxin at 0.25 mg qDay. -continue Eliquis at 5 mg b.i.d. (2) HFrEF (heart failure with reduced ejection fraction): -left ventricular systolic function mildly reduced at 40-45%. -this has been a chronic finding. -euvolemic at this time. (3) Severe tricuspid regurgitation by prior echocardiogram: -stable, has been noted on prior echocardiograms. (4) Moderate to severe mitral regurgitation: -mild to moderate on current echocardiogram. Admission and Anticipated Discharge Date Admission Date: June 07, 2020 Subjective The patient is resting comfortably in bed without complaints of chest pain, dyspnea, or palpitations. Feels that she may have a urinary tract infection. Physical Exam Physical Exam: In general is a well-developed well-nourished white female no acute distress. HEENT exam is negative. Neck is supple with full carotid upstrokes. There are no carotid bruits. No JVD. There is no thyromegaly. Cardiovascular exam reveals an irregular regular rhythm with a 1/6 systolic murmur along the left sternal border. Lungs are clear without rales, rhonchi or wheezes. Abdomen is soft without bruits. Extremities reveal intact radial artery pulses bilaterally. There is no peripheral edema. Left hip is dressed. Results & Data ([facility]) Vital Signs (Past 12 Hours) Vital Signs Temp Pulse Resp BP Pulse Ox 06/13/20 11:27 36.4 C L 85 18 131/80 97 06/13/20 07:26 36.7 C 106 H 20 126/82 95 06/13/20 04:31 36.7 C 88 18 126/69 94 Diagnostic Findings field tech showed atrial fibrillation with a ventricular response in the 70s and 80s. Occasionally jumps up over 100 bpm. PG Care Time/CCT Total # of Minutes Spent Total Time Spent with Patient: Total time spent is greater than 50% in coordination of care (as documented) at patient's floor/unit and/or counseling patient: Coding Level of Care Code 72313 Subseq Hosp Care Lvl 3 Diagnoses Permanent atrial fibrillation I48.2 HFrEF (heart failure with reduced ejection fraction) I50.20 Severe tricuspid regurgitation by prior echocardiogram I07.1 Moderate to severe mitral regurgitation I34.0
[2020-06-13] MEDS: DIGOXIN 250 MCG in SYRINGE 9 ML IV SCH (15:22)
[2020-06-13] MEDS: SENNA 8.6 MG TAB PO SCH (20:43)
--- NOTE | 2020-06-13 21:45 | Hospitalist Progress Note ---
Date of Service June 13, 2020 Assessment & Plan (1) Subcapital fracture of left hip: surgery was performed on 06/08/2020 Left Total Hip Arthroplasty Anterior Approach (2) Permanent atrial fibrillation: Better rate control Started on DIG IV Appreciate input from cardio.. Patient typically takes metoprolol 100 mg succinate 3 times daily with the supervision of Dr. Olivares. Her apixaban is restarted did add diltiazem gtt to help with perioperative rate control transition to po diltiazem, escalation of doses of diltiazem did not help rate and lowered bp, will try digoxin and follow, does have lower EF on Echo continues on Dyazide restart anticoagulation in 24 hours if post op anemia is stable apixiban starts in pm 06/09 Echocardiogram shows an EF of 45 to 50% global hypokinesis of the left ventricle mild to moderate mitral regurgitation elevated right ventricular systolic pressures subsequently there be concern the patient has some chronic systolic heart failure and 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 She reports having to go to the bathroom multiple times today but this subsided after having a bowel movement Review of Systems Review of Systems: All systems reviewed & are unremarkable except as noted in HPI & below Physical Exam Physical Exam: The patient appeared well nourished and normally developed. Vital signs as documented. Head exam is normocephalic atraumatic no scleral icterus Neck is without JVD, thyromegaly, or carotid bruits. Lungs are clear to auscultation, no focal loss of breath sounds, no concerns for HF Cardiac exam, tachycardic and irregular seem is heard, rate control is not achieved Abdominal exam reveals normal bowel sounds, soft non tender, no masses Extremities left sided hip pain and some swelling, wound is C/D/I Neurologic exam is alert and oriented, no focal loss of strength or sensation Skin is without bruises or rashes Psychologically is without concerns for anxiety or depression Results & Data Results & Data ([place]) Vital Signs (Past 12 Hours) Vital Signs Temp Pulse Pulse Resp BP Pulse Ox 06/13/20 19:29 36.4 C L 88 20 103/61 96 06/13/20 15:46 36.7 C 86 20 121/74 96 06/13/20 15:22 85 06/13/20 11:27 36.4 C L 85 18 131/80 97 PG Care Time/CCT Total # of Minutes Spent Total Time Spent with Patient: Total time spent is greater than 50% in coordination of care (as documented) at patient's floor/unit and/or counseling patient: Coding Level of Care Code 68869 Subseq Hosp Care Lvl 2 Diagnoses Subcapital fracture of left hip S72.012A Permanent atrial fibrillation I48.2 HFrEF (heart failure with reduced ejection fraction) I50.20 Moderate pulmonary arterial systolic hypertension I27.21 Acquired autoimmune hypothyroidism E06.3 DVT prophylaxis Z29.9 Time Spent (min) 25
[2020-06-14] MEDS: ACETAMINOPHEN 500 MG TAB PO SCH ×2 (05:32→14:00)
[2020-06-14] MEDS: MULTIVITAMIN TAB PO SCH (09:21)
[2020-06-14] MEDS: CHOLECALCIFEROL 1,000 UNITS 25 MCG TAB PO SCH (09:21)
[2020-06-14] MEDS: APIXABAN 5 MG TABLET PO SCH (09:21)
[2020-06-14] MEDS: METOPROLOL SUCC 50MG EXT REL TAB PO SCH ×2 (09:21→14:00)
[2020-06-14] MEDS: DOCUSATE SODIUM 100 MG CAP PO SCH (09:21)
--- NOTE | 2020-06-14 09:57 | Cardiology Progress Note ---
Date of Service June 14, 2020 Assessment & Plan (1) Permanent atrial fibrillation: -heart rate now adequately control with the addition of digoxin. -ventricular response does increase with physical activity. This is acceptable. -continue metoprolol succinate at 100 mg t.i.d. -continue digoxin at 0.25 mg daily. -continue Eliquis at 5 mg b.i.d. (2) HFrEF (heart failure with reduced ejection fraction): -LVEF mildly reduced at 40-45%. -this has been a chronic finding. -euvolemic at this time. (3) Severe tricuspid regurgitation by prior echocardiogram: -stable, has been noted on prior echocardiograms. (4) Moderate to severe mitral regurgitation: -mild to moderate on current echocardiogram. Admission and Anticipated Discharge Date Admission Date: June 07, 2020 Subjective The patient is resting comfortably in bed without complaints of chest pain, dyspnea, or palpitations. She has greatly improved over yesterday. Physical Exam Physical Exam: In general is a well-developed well-nourished white female no acute distress. HEENT exam is negative. Neck is supple with full carotid upstrokes. There are no carotid bruits. No jugular venous distension. There is no thyromegaly. Cardiovascular exam reveals an irregular regular rhythm with a 1/6 systolic murmur along the left sternal border. Lungs are clear without rales, rhonchi or wheezes. Abdomen is soft without bruits. Extremities reveal intact radial artery pulses bilaterally. There is no peripheral edema. Left hip is dressed. Results & Data ([facility]) Vital Signs (Past 12 Hours) Vital Signs Temp Pulse Resp BP Pulse Ox 06/14/20 07:00 36.8 C 88 18 108/77 98 06/14/20 04:18 36.3 C L 85 25 H 119/72 95 06/13/20 23:45 36.5 C 87 15 123/71 96 PG Care Time/CCT Total # of Minutes Spent Total Time Spent with Patient: Total time spent is greater than 50% in coordination of care (as documented) at patient's floor/unit and/or counseling patient: Coding Level of Care Code 59907 Subseq Hosp Care Lvl 3 Diagnoses Permanent atrial fibrillation I48.2 HFrEF (heart failure with reduced ejection fraction) I50.20 Severe tricuspid regurgitation by prior echocardiogram I07.1 Moderate to severe mitral regurgitation I34.0
--- NOTE | 2020-06-26 09:30 | Discharge Summary ---
Date of Service June 14, 2020 Admission HPI Per Admitting Provider Pt reportedly fell last pm trying to get around her , she tired to rest but had increasing pain in the hip, states she did not take her eliquis last pm, presents to ER with left subcapital hip fracture Principal Diagnosis Subcapital fracture of left hip Discharge Exam The patient appeared well nourished and normally developed. Vital signs as documented. Head exam is normocephalic atraumatic no scleral icterus Neck is without JVD, thyromegaly, or carotid bruits. Lungs are clear to auscultation, no focal loss of breath sounds, no concerns for HF Cardiac exam, tachycardic and irregular seem is heard, rate control is not achieved Abdominal exam reveals normal bowel sounds, soft non tender, no masses Extremities left sided hip pain and some swelling, wound is C/D/I Neurologic exam is alert and oriented, no focal loss of strength or sensation Skin is without bruises or rashes Psychologically is without concerns for anxiety or depression Discharge Data Allergies Allergy/AdvReac Type Severity Reaction Status Date / Time adhesive Allergy Mild Rash Verified 06/26/20 09:21 Consultations 06/11/20 11:13 Consult Cardiology Routine Procedures Performed Operation Date: 06/08/20 14:30 Actual Procedures p Left Total Hip Arthroplasty Anterior Approach(Left) - Omid Kirk DO Ordered Studies 06/08/20 13:30 FL hip LT 1V Routine Hospital Course (1) Subcapital fracture of left hip: surgery was performed on 06/08/2020 Left Total Hip Arthroplasty Anterior Approach (2) Permanent atrial fibrillation: Better rate control Started on DIG IV Appreciate input from cardio.. Patient typically takes metoprolol 100 mg succinate 3 times daily with the supervision of Dr. Olivares. Her apixaban is restarted did add diltiazem gtt to help with perioperative rate control transition to po diltiazem, escalation of doses of diltiazem did not help rate and lowered bp, will try digoxin and follow, does have lower EF on Echo continues on Dyazide restart anticoagulation in 24 hours if post op anemia is stable apixiban starts in pm 06/09 Echocardiogram shows an EF of 45 to 50% global hypokinesis of the left ventricle mild to moderate mitral regurgitation elevated right ventricular systolic pressures subsequently there be concern the patient has some chronic systolic heart failure and 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 Will discharge on oral dig 250 mcg daily (3) HFrEF (heart failure with reduced ejection fraction): pt is not on afterload reduction but blood pressure limits its use currently (4) Moderate pulmonary arterial systolic hypertension: remains on mild diuretic (5) Acquired autoimmune hypothyroidism: Patient is currently not any thyroid supplementation nromal TSH (6) DVT prophylaxis: apixiban Total Time Total Time Spent Total Time Spent (In Minutes): 32 Total Time Includes: Examination of the Patient, Discharge Planning and Medication Reconciliation Discharge Plan Discharge Items Patient Disposition: Transfer Inpatient Rehab Fac Reason For Visit: SUBCAPITL HIP FRACTURE Discharge Diagnosis: subcapital hip fracture Activity: Resume your previous activity Non-emergency contact: Primary Care Provider Call non-emergency contact if: you have any medication questions Follow-up/Referrals: Ori Chavarria, [Primary Care Provider] - (APPOINTMENT HAS BEEN REQUESTED) Diet: Low Sodium (2gm) Addtl Attending Provider Instructions: You have been hospitalized for an acute medical problem. During your stay at [facility], we have made an effort to correct the problem that brought you to the hospital while keeping you as comfortable as possible. Medications were used to bring your condition under control and your discharge instructions will include directions for any medications you should take after leaving the hospital. Please make sure you see your Primary Care Provider as part of your follow up plan. Followup with Dr. Kirk 2 weeks after surgery. Weight bear as tolerated. Pending Studies at Discharge: No Stand-Alone Forms: My [facility] Skilled Items Patient informed of condition?: No DNR: No Discharge Level of Care: Acute rehab Communicable Disease: No Discharge Prognosis: Stable Lines: None Urinary Catheter: No Medications and DC Order Prescriptions: New acetaminophen 500 mg Tablet 1,000 mg PO Q8 Qty: 0 RF: 0 digoxin 250 mcg (0.25 mg) tablet 250 mcg PO DAILY Qty: 30 RF: 0 Continued cholecalciferol (vitamin D3) 2,000 unit capsule 2,000 units PO QDD RF: 0 albuterol sulfate [Proventil HFA] 90 mcg/actuation HFA aerosol inhaler See Rx Instructions INH .COMPLEX PRN (Reason: shortness of breath or wheezing) Qty: 6.7 RF: 1 apixaban 5 mg tablet 5 mg PO BID Qty: 180 RF: 3 metoprolol succinate 100 mg tablet extended release 24 hr 100 mg PO TID Qty: 270 RF: 3 triamterene-hydrochlorothiazid [Maxzide-25mg] 37.5-25 mg tablet 1 tab PO .COMPLEX Qty: 30 RF: 3 metoprolol tartrate 50 mg Tablet 50 mg PO DAILY PRN (Reason: A Fib) RF: 0 calcium carbonate-vitamin D3 [Calcium 600 + D(3)] 600 mg(1,500mg) -400 unit Tablet 1 tab PO TID RF: 0 No Action docusate sodium [Colace] 100 mg capsule 100 mg PO BID RF: 0 Discharge Orders: Discharge Order (Routine); Ordered 06/14/20 Ordered By: Michele Alexander Admission Data Admit Date/Time: 06/07/20 07:19 Attending Provider: Michele Alexander Admit Provider: Raman Matt Primary Care Provider: Ori Chavarria Other Providers: Iggy Olivares Other Interventions: Discharge Summary Assessment (RN) Last Done: 06/14/20 13:44 Coding Level of Care Code D/C Day Management >30 mins Diagnoses Subcapital fracture of left hip S72.012A Permanent atrial fibrillation I48.2 HFrEF (heart failure with reduced ejection fraction) I50.20 Moderate pulmonary arterial systolic hypertension I27.21 Acquired autoimmune hypothyroidism E06.3 DVT prophylaxis Z29.9
== END 2020-06-14 14:30 | DRG 522 ==
LOC: ED 05:49 → SUATTDRO 07:19 → 2S 07:19